=== PATIENT | male | born 1960 | race African-American/Black ===

== ENCOUNTER 2018-06-30 10:04 | Emergency (ER) | payer SELFPAY ==
[2018-06-30] MEDS ORDERED: DIPHENHYDRAMINE 25 MG TAB/CAP ONE (10:59)
[2018-06-30] MEDS ORDERED: METHYLPREDNISOLONE 125 MG INJ ONE (10:59)
[2018-06-30] MEDS ORDERED: FAMOTIDINE 20 MG/2 ML VIAL IV ONE (10:59)
[2018-06-30] MEDS ORDERED: NA CHLORIDE 0.9% 1,000 ML ONE (10:59)
[2018-06-30] MEDS ORDERED: DEXAMETHASONE 4 MG/ML VIAL ONE (11:13)
--- NOTE | 2018-06-30 12:09 | EDPHYS ---
Physician Documentation [facility] Name: Ilan Garcia Jr Age: 57 yrs Sex: Male : 1960 Arrival Date: 06/30/2018 Time: 10:07 Bed 3 Private MD: None, None ED Physician Js Pinzon HPI: 06/30 10:44 This 57 yrs old Black Male presents to ER via Ambulatory with complaints of Facial jmm Swelling. 10:44 Onset: The symptoms/episode began/occurred gradually, 1 week(s) ago. Associated signs jmm and symptoms: Pertinent negatives: chest pain, fever, headache, vomiting. Modifying factors: The patient symptoms are alleviated by nothing, the patient symptoms are aggravated by nothing. This is a 57 year old male with no chronic medical conditions that presents to the ED with facial swelling beginning 1 week ago after eating seafood gumbo. Patient denies shortness of breath, vomiting, chest pain. . Historical: - Allergies: 10:24 seafood; aj - Home Meds: 10:24 None [Active]; aj - PMHx: 10:24 None; aj - PSHx: 10:24 Knee surgery; aj - Immunization history:: Adult Immunizations unknown. - Social history:: Smoking status: Patient uses tobacco products, smokes one-half pack cigarettes per day. - Ebola Screening: : Patient negative for fever greater than or equal to 101.5 degrees Fahrenheit, and additional compatible Ebola Virus Disease symptoms Patient denies exposure to infectious person Patient denies travel to an Ebola-affected area in the 21 days before illness onset No symptoms or risks identified at this time. ROS: 10:44 Constitutional: Negative for fever, chills, and weight loss, Eyes: Negative for injury, jmm pain, redness, and discharge, Cardiovascular: Negative for chest pain, palpitations, and edema, Respiratory: Negative for shortness of breath, cough, wheezing, and pleuritic chest pain. 10:44 ENT: Positive for 10:44 All other systems are negative. Exam: 10:44 Constitutional: This is a well developed, well nourished patient who is awake, alert, jmm and in no acute distress. 10:44 Head/face: Noted is swelling, that is moderate. 10:44 ENT: Posterior pharynx: Airway: normal, no pharyngeal edema appreciated. 10:44 Neck: ROM/movement: is normal, is supple. 10:44 Cardiovascular: Rate: normal, Rhythm: regular. 10:44 Respiratory: the patient does not display signs of respiratory distress, Respirations: normal, Breath sounds: are clear throughout. 10:44 Musculoskeletal/extremity: ROM: intact in all extremities. 10:44 Skin: Appearance: Color: normal in color. 10:44 Neuro: Orientation: is normal, Mentation: is normal, Memory: is normal. 10:44 Psych: Behavior/mood is pleasant, cooperative. Vital Signs: 10:24 BP 153 / 97; Pulse 81; Resp 17; Temp 98.4; Pulse Ox 97% on R/A; Weight 92.99 kg; Height aj 5 ft. 11 in. (180.34 cm); 11:20 BP 140 / 93; Pulse 84; Resp 16; Temp 98.5; Pulse Ox 99% on R/A; Pain 6/10; ch 11:55 BP 152 / 76; Pulse 71; Resp 16; Temp 97.5; Pulse Ox 99% on R/A; Pain 3/10; ch 12:15 BP 134 / 78; Pulse 68; Resp 14; Temp 97.3; Pulse Ox 99% on R/A; Pain 0/10; ch 10:24 Body Mass Index 28.59 (92.99 kg, 180.34 cm) aj MDM: 10:[address] [facility] 12:06 Data reviewed: vital signs, nurses notes. Counseling: I had a detailed discussion with corbin the patient and/or guardian regarding: the historical points, exam findings, and any diagnostic results supporting the discharge/admit diagnosis, the need for outpatient follow up, to return to the emergency department if symptoms worsen or persist or if there are any questions or concerns that arise at home. Response to treatment: the patient's symptoms have mildly improved after treatment, decreased facial swelling. Administered Medications: 11:05 Drug: diphenhydrAMINE 50 mg Route: PO; ch 11:57 Follow up: Response: No adverse reaction; Marked relief of symptoms ch 11:05 Drug: Pepcid 20 mg Route: IVP; Site: left antecubital; ch 11:57 Follow up: Response: No adverse reaction; Marked relief of symptoms ch 11:05 Drug: NS 0.9% 1000 ml Route: IV; Rate: 1 bolus; Site: left antecubital; 11:56 Follow up: IV Status: Completed infusion; IV Intake: 1000ml 11:19 Drug: Decadron - Dexamethasone 10 mg Route: IVP; Site: right antecubital; 11:56 Follow up: Response: No adverse reaction; Marked relief of symptoms Disposition: 13:44 Co-signature as Attending Physician, Js Pinzon MD I agree with the assessment and [facility] plan of care. Disposition: 06/30/18 12:07 Discharged to Home. Impression: Allergic Reaction. - Condition is Stable. - Discharge Instructions: Allergies, Adult, Angioedema. - Prescriptions for Benadryl 25 mg Oral Capsule - take 1 capsule by ORAL route every 6 hours As needed; 30 tablet. Prednisone 20 mg Oral Tablet - take 3 tablet by ORAL route once daily for 5 days; 15 tablet. EpiPen 0.3 mg Injection auto- injector - inject 1 pen by INTRAMUSCULAR route as directed Inject into the outer portion of the thigh, through clothing if necessary. Indicated in the emergency treatment of allergic reactions; 2 unit. - Medication Reconciliation Form, Thank You Letter, Antibiotic Education, Prescription Opioid Use, Work release form form. - Follow up: Private Physician; When: 2 - 3 days; Reason: Recheck today's complaints, Continuance of care, Re-evaluation by your physician. Signatures: Layne Hoff RN RN ch Myers, Amanda, RN RN aj Anderson, Corey, MD MD cha Mickail, Joel, PA PA [facility] Corrections: (The following items were deleted from the chart) 12:17 12:07 06/30/2018 12:07 Discharged to Home. Impression: Allergic Reaction. Condition is ch Stable. Forms are Medication Reconciliation Form, Thank You Letter, Antibiotic Education, Prescription Opioid Use. Follow up: Private Physician; When: 2 - 3 days; Reason: Recheck today's complaints, Continuance of care, Re-evaluation by your physician. corbin
--- NOTE | 2018-06-30 12:09 | ER ---
Nurse's Notes [facility] Name: Ilan Garcia Jr Age: 57 yrs Sex: Male : 1960 Arrival Date: 06/30/2018 Time: 10:07 Bed 3 Private MD: None, None Diagnosis: Allergic Reaction Presentation: 06/30 10:23 Presenting complaint: Patient states: Facial swelling for 1 week after eating seafood aj gumbo. Patient reports similar episode years ago after eating seafood. Transition of care: patient was not received from another setting of care. Onset of symptoms was May 23, 2018. Risk Assessment: Do you want to hurt yourself or someone else? Patient reports no desire to harm self or others. Initial Sepsis Screen: Does the patient meet any 2 criteria? No. Patient's initial sepsis screen is negative. Does the patient have a suspected source of infection? No. Patient's initial sepsis screen is negative. Care prior to arrival: None. 10:23 Method Of Arrival: Ambulatory 10:23 Acuity: BRI 3 aj Triage Assessment: 10:24 General: Appears in no apparent distress. uncomfortable, Behavior is calm, cooperative, aj appropriate for age. Pain: Denies pain. Neuro: Level of Consciousness is awake, alert, obeys commands, Oriented to person, place, time, situation, Appropriate for age Reports headache. Respiratory: Airway is patent Respiratory effort is even, unlabored, Respiratory pattern is regular, symmetrical, Denies shortness of breath. Derm: Skin is intact, is healthy with good turgor, Skin is pink, warm \T\ dry. normal. Musculoskeletal: Swelling present in face. Historical: - Allergies: 10:24 seafood; aj - Home Meds: 10:24 None [Active]; aj - PMHx: 10:24 None; aj - PSHx: 10:24 Knee surgery; aj - Immunization history:: Adult Immunizations unknown. - Social history:: Smoking status: Patient uses tobacco products, smokes one-half pack cigarettes per day. - Ebola Screening: : Patient negative for fever greater than or equal to 101.5 degrees Fahrenheit, and additional compatible Ebola Virus Disease symptoms Patient denies exposure to infectious person Patient denies travel to an Ebola-affected area in the 21 days before illness onset No symptoms or risks identified at this time. Screenin:20 Abuse screen: Denies threats or abuse. Denies injuries from another. Nutritional ch screening: No deficits noted. Tuberculosis screening: No symptoms or risk factors identified. Fall Risk None identified. Assessment: 11:20 General: Appears in no apparent distress. uncomfortable, Behavior is calm, cooperative. ch Pain: Complains of pain in face Pain currently is 6 out of 10 on a pain scale. Neuro: No deficits noted. Cardiovascular: Denies chest pain, Heart tones S1 S2 present Capillary refill < 3 seconds in bilateral fingers toes. Respiratory: Airway is patent Respiratory effort is even, unlabored, Breath sounds are clear bilaterally. Derm: Skin is normal, brown, pt has severe angioedema to latosha eyes, eyes are almost swollen shut. pt states it feels like pressure. Musculoskeletal: Circulation, motion, and sensation intact. 11:55 Reassessment: Patient appears in no apparent distress at this time. Patient and/or ch family updated on plan of care and expected duration. Pain level reassessed. Patient is alert, oriented x 3, equal unlabored respirations, skin warm/dry/pink. Patient states feeling better. Patient states symptoms have improved. 12:15 Reassessment: Patient appears in no apparent distress at this time. Patient and/or ch family updated on plan of care and expected duration. Pain level reassessed. Patient is alert, oriented x 3, equal unlabored respirations, skin warm/dry/pink. swelling around eyes is much improved. no s/s of distress. pt states he feels better, denies pain at this time. Patient denies pain at this time. Patient states feeling better. Patient states symptoms have improved. Vital Signs: 10:24 BP 153 / 97; Pulse 81; Resp 17; Temp 98.4; Pulse Ox 97% on R/A; Weight 92.99 kg; Height aj 5 ft. 11 in. (180.34 cm); 11:20 BP 140 / 93; Pulse 84; Resp 16; Temp 98.5; Pulse Ox 99% on R/A; Pain 6/10; ch 11:55 BP 152 / 76; Pulse 71; Resp 16; Temp 97.5; Pulse Ox 99% on R/A; Pain 3/10; ch 12:15 BP 134 / 78; Pulse 68; Resp 14; Temp 97.3; Pulse Ox 99% on R/A; Pain 0/10; ch 10:24 Body Mass Index 28.59 (92.99 kg, 180.34 cm) aj ED Course: 10:07 Patient arrived in ED. mr 10:07 None, None is Private Physician. mr 10:24 Triage completed. aj 10:24 Arm band placed on left wrist. Patient placed in an exam room. aj 10:28 Toi Marquez PA is PHCP. jm 10:28 Js Pinzon MD is Attending Physician. [facility] 10:50 Missed attempt(s): 22 gauge in left forearm. antecubital area. attemped by myself once ch and tiago Bernardo once. . Bleeding controlled, band aid applied, catheter tip intact. 10:51 Layne Hoff, CRISTOFER is Primary Nurse. ch 11:20 Patient has correct armband on for positive identification. Placed in gown. Bed in low ch position. Call light in reach. Side rails up X 1. Adult w/ patient. Pulse ox on. NIBP on. Warm blanket given. 11:20 Inserted saline lock: 22 gauge in right antecubital area, using aseptic technique. ch 12:15 No apparent distress. Resting quietly. ch 12:15 No provider procedures requiring assistance completed. IV discontinued, intact, ch bleeding controlled, No redness/swelling at site. Pressure dressing applied. Administered Medications: 11:05 Drug: diphenhydrAMINE 50 mg Route: PO; ch 11:57 Follow up: Response: No adverse reaction; Marked relief of symptoms ch 11:05 Drug: Pepcid 20 mg Route: IVP; Site: left antecubital; ch 11:57 Follow up: Response: No adverse reaction; Marked relief of symptoms ch 11:05 Drug: NS 0.9% 1000 ml Route: IV; Rate: 1 bolus; Site: left antecubital; ch 11:56 Follow up: IV Status: Completed infusion; IV Intake: 1000ml ch 11:19 Drug: Decadron - Dexamethasone 10 mg Route: IVP; Site: right antecubital; ch 11:56 Follow up: Response: No adverse reaction; Marked relief of symptoms ch Intake: 11:56 IV: 1000ml; Total: 1000ml. ch Outcome: 12:07 Discharge ordered by . [facility] 12:15 Discharged to home ambulatory, with family. 12:15 Condition: stable 12:15 Discharge instructions given to patient, family, Instructed on discharge instructions, follow up and referral plans. medication usage, Demonstrated understanding of instructions, follow-up care, medications, Prescriptions given X 3. 12:17 Patient left the ED. Signatures: Layne Hoff RN RN ch Myers, Amanda, RN RN aj Mickail, Joel, PA PA jmm Rivera, Maria mr
[2018-06-30 13:15] VITALS: O2SAT 99
[2018-06-30 13:18] VITALS: BP 134/78; TEMP 97.3
== END 2018-06-30 12:17 | disposition home or self-care (01) ==
LOC: ER 10:04
DX: R22.0 Localized swelling, mass and lump, head (principal); F17.210 Nicotine dependence, cigarettes, uncomplicated; Z91.013 Allergy to seafood
CPT/HCPCS: 99284; J2930; J7030

== ENCOUNTER 2019-02-13 19:22 | Inpatient (IN) | payer SELFPAY ==
[2019-02-13 20:23] LABS: Absolute Lymphocytes (CBC) 0.8 K/uL (0.7-4.9); Absolute Monocytes 1.1 K/uL (0.1-1.3); Basophils % 0.3 % (0-1.3); Eosinophils % 0.1 % (0-4.4); Hematocrit 51.4 % (39.6-49.0); MPV 8.8 fL (7.6-11.3); Monocytes % 7.9 % (3.3-12.3); RBC Red Blood Cell Count 5.77 M/uL (4.33-5.43)
[2019-02-13 20:35] LABS: Albumin 3.8 g/dL (3.4-5.0); Bilirubin Direct 0.2 mg/dL (0-0.2); Bilirubin Total 0.8 mg/dL (0.2-1.0); Protein, Total 9.5 g/dL (6.4-8.2)
[2019-02-13 20:36] LABS: Urine Blood 2+ (NEG); Urine Glucose NEGATIVE (NEG); Urine Protein 1+ (NEG)
[2019-02-13] MEDS ORDERED: MORPHINE 4 MG/ML SYR ONE (20:39)
[2019-02-13 20:49] LABS: Potassium 6.6 mmol/L (3.5-5.1)
--- NOTE | 2019-02-13 20:56 | EDPHYS ---
Physician Documentation [facility] Name: Ilan Garcia Jr Age: 58 yrs Sex: Male : 1960 Arrival Date: 02/13/2019 Time: 19:27 Bed 4 Private MD: ED Physician Rony Stark HPI: 02/14 06:14 This 58 yrs old Black Male presents to ER via EMS with complaints of Constipation, tw4 Urinary Retention. 06:14 The patient presents with urinary symptoms, retention. Onset: The symptoms/episode tw4 began/occurred 4 day(s) ago. Modifying factors: The symptoms are alleviated by nothing, the symptoms are aggravated by nothing. Associated signs and symptoms: The patient has no apparent associated signs or symptoms. Severity of symptoms: At their worst the symptoms were moderate, in the emergency department the symptoms are unchanged. The patient has not experienced similar symptoms in the past. Historical: - Allergies: 02/13 19:29 SEAFOOD; tl2 - Home Meds: 19:29 None [Active]; tl2 - PMHx: 19:29 Hypertension; tl2 - Immunization history:: Adult Immunizations up to date. - Social history:: Smoking status: Patient uses tobacco products, smokes two packs cigarettes per day. - Ebola Screening: : No symptoms or risks identified at this time. ROS: 02/14 06:14 Constitutional: Negative for fever, chills, and weight loss, Eyes: Negative for injury, tw4 pain, redness, and discharge, Cardiovascular: Negative for chest pain, palpitations, and edema, Respiratory: Negative for shortness of breath, cough, wheezing, and pleuritic chest pain, Abdomen/GI: Negative for abdominal pain, nausea, vomiting, diarrhea, and constipation, Back: Negative for injury and pain. : Positive for urinary symptoms, urinary retention. Exam: 06:14 Chest/axilla: Normal chest wall appearance and motion. Nontender with no deformity. tw4 No lesions are appreciated. Cardiovascular: Regular rate and rhythm with a normal S1 and S2. No gallops, murmurs, or rubs. Normal PMI, no JVD. No pulse deficits. Respiratory: Lungs have equal breath sounds bilaterally, clear to auscultation and percussion. No rales, rhonchi or wheezes noted. No increased work of breathing, no retractions or nasal flaring. Back: No spinal tenderness. No costovertebral tenderness. Full range of motion. MS/ Extremity: Pulses equal, no cyanosis. Neurovascular intact. Full, normal range of motion. Neuro: Awake and alert, GCS 15, oriented to person, place, time, and situation. Cranial nerves II-XII grossly intact. Motor strength 5/5 in all extremities. Sensory grossly intact. Cerebellar exam normal. Normal gait. 06:14 Constitutional: The patient appears in obvious distress, moderately distressed, obviously ill, in obvious pain. 06:14 Abdomen/GI: Inspection: abdomen appears normal, Bowel sounds: diminished, Palpation: moderate abdominal tenderness, in the suprapubic area. Vital Signs: 02/13 19:29 BP 160 / 117; Pulse 119; Resp 22; Temp 98.1(O); Pulse Ox 91% on R/A; Weight 95.25 kg; tl2 Height 5 ft. 11 in. (180.34 cm); Pain 9/10; 20:35 BP 142 / 111; Pulse 115; Resp 22; Pulse Ox 94% on 2 lpm NC; bb 22:52 BP 147 / 113; Pulse 124; Resp 22; Temp 98.4; Pulse Ox 96% on 2 lpm NC; ak1 23:25 BP 140 / 104; Pulse 113; Resp 18; Temp 98.6(O); Pulse Ox 99% on 2 lpm NC; Pain 0/10; ak1 02/14 00:29 BP 137 / 82; Pulse 111; Resp 18; Pulse Ox 99% on 2 lpm NC; ak1 02/13 19:29 Body Mass Index 29.29 (95.25 kg, 180.34 cm) tl2 MDM: 02/13 20:02 Patient medically screened. tw4 02/14 06:14 Differential diagnosis: nonspecific abdominal pain, appendicitis, UTI. Data reviewed: tw4 vital signs, nurses notes. Data interpreted: teletypesetter monitor: Pulse oximetry: Interpretation: normal. Counseling: I had a detailed discussion with the patient and/or guardian regarding: the historical points, exam findings, and any diagnostic results supporting the discharge/admit diagnosis. Special discussion: I discussed with the patient/guardian in detail that at this point there is no indication for admission to the hospital. It is understood, however, that if the symptoms persist or worsen the patient needs to return immediately for re-evaluation. 02/13 19:36 Order name: Basic Metabolic Panel; Complete Time: 20:54 tw4 02/13 20:54 Interpretation: Normal except: BUN 93; CRE 8.37; GLUC 138; CO2 19; K 6.6; NA 132. tw 02/13 19:36 Order name: CBC with Diff tw 02/13 20:54 Interpretation: Normal except: WBC 14.0; RBC 5.77; HCT 51.4; KEISHA% 85.7; LYM% 6.0; NEUT tw4 A 12.0. 02/13 19:36 Order name: Creatinine for Radiology; Complete Time: 20:54 tw 02/13 20:54 Interpretation: Normal except: CRE 8.51; GFR 8. tw 02/13 19:36 Order name: Hepatic Function; Complete Time: 20:54 [facility] 02/13 20:54 Interpretation: Normal except: AST 11; TP 9.5; GLOB 5.7; A/G 0.7. [facility] 02/13 19:36 Order name: Lipase; Complete Time: 20:54 [facility] 02/13 20:54 Interpretation: Normal except: LIP 68. tw 02/13 20:24 Order name: Urine Dipstick--Ancillary (enter results) ks 02/13 20:18 Order name: CT Abd/Pelvis - Without Cont [facility] 02/13 22:01 Order name: Lactate [facility] 02/13 22:01 Order name: Procalcitonin [facility] 02/13 22:41 Order name: Potassium [facility] 02/13 23:17 Order name: CBC Smear Scan [facility] 02/13 19:36 Order name: IV Saline Lock; Complete Time: 19:45 tw 02/13 19:36 Order name: Labs collected and sent; Complete Time: 19:57 tw 02/13 19:59 Order name: [place]; Complete Time: 20:23 02/13 20:52 Order name: EKG; Complete Time: 20:52 tw4 Administered Medications: 02/13 20:33 Drug: morphine 4 mg Route: IVP; Site: left antecubital; bb 22:53 Follow up: Response: No adverse reaction ak1 21:16 Drug: D50W 50 ml Route: IVP; Site: left antecubital; ak1 22:53 Follow up: Response: No adverse reaction ak1 21:16 Drug: Calcium Chloride 1 grams Route: IVP; Site: left antecubital; ak1 22:53 Follow up: Response: No adverse reaction ak1 21:16 Drug: Sodium Bicarbonate 1 amp Route: IVP; Site: left antecubital; ak1 22:54 Follow up: Response: No adverse reaction ak1 21:17 Drug: Insulin Regular Human 10 units {Co-Signature: aa1 (Tahmina Bryant RN).} Route: ak1 IVP; Site: left antecubital; 22:53 Follow up: Response: No adverse reaction ak1 Disposition: 02/13/19 20:55 Hospitalization ordered by Fabiola Locke for Inpatient Admission. Preliminary diagnosis are Acute kidney failure, Hyperkalemia. - Bed requested for Telemetry/MedSurg (Inpatient). - Status is Inpatient Admission. ak1 - Condition is Serious. - Problem is new. - Symptoms are unchanged. UTI on Admission? No Signatures: Dispatcher [employer] EDMS Leslie Nevarez RN RN Brandee Esquivel RN RN bb Leny Santos RN RN ak1 Karishma Ch RN CRISTOFER tl2 Rony Stark MD MD tw4 Tahmina Bryant RN aa1 Corrections: (The following items were deleted from the chart) 22:09 20:55 Hospitalization Ordered by Fabiola Locke MD for Inpatient Admission. Preliminary bb diagnosis is Acute kidney failure; Hyperkalemia. Bed requested for Intensive Care Unit. Status is Inpatient Admission. Condition is Serious. Problem is new. Symptoms are unchanged. UTI on Admission? No. tw4 23:30 22:09 02/13/2019 20:55 Hospitalization Ordered by Fabiola Locke MD for Inpatient mw Admission. Preliminary diagnosis is Acute kidney failure; Hyperkalemia. Bed requested for Telemetry/MedSurg (Inpatient). Status is Inpatient Admission. Condition is Serious. Problem is new. Symptoms are unchanged. UTI on Admission? No. bb 02/14 00:28 02/13 23:30 02/13/2019 20:55 Hospitalization Ordered by Fabiola Locke MD for Inpatient ak1 Admission. Preliminary diagnosis is Acute kidney failure; Hyperkalemia. Bed requested for Telemetry/MedSurg (Inpatient). Status is Inpatient Admission. Condition is Serious. Problem is new. Symptoms are unchanged. UTI on Admission? No. mw
--- NOTE | 2019-02-13 20:56 | ER ---
Nurse's Notes [facility] Name: Ilan Garcia Jr Age: 58 yrs Sex: Male : 1960 Arrival Date: 02/13/2019 Time: 19:27 Bed 4 Private MD: Diagnosis: Acute kidney failure;Hyperkalemia Presentation: 02/13 19:27 Presenting complaint: EMS states: No bowel movement or urination since . tl2 Abdominal distention noted. Pt reports severe abdominal pain. Transition of care: patient was not received from another setting of care. Onset of symptoms was February 08, 2019. Risk Assessment: Do you want to hurt yourself or someone else? Patient reports no desire to harm self or others. Initial Sepsis Screen: Does the patient meet any 2 criteria? No. Patient's initial sepsis screen is negative. Does the patient have a suspected source of infection? No. Patient's initial sepsis screen is negative. Care prior to arrival: Medication(s) given: fentanyl 100 mcg IV initiated. 20 GA, in the left antecubital area. 19:27 Method Of Arrival: EMS: [facility] tl2 19:27 Acuity: BRI 3 tl2 Triage Assessment: 19:29 General: Appears in no apparent distress. uncomfortable, Behavior is calm, cooperative, tl2 appropriate for age. Pain: Complains of pain in abdomen. GI: Abdomen is round distended, Reports constipation. Historical: - Allergies: 19:29 SEAFOOD; tl2 - Home Meds: 19:29 None [Active]; tl2 - PMHx: 19:29 Hypertension; tl2 - Immunization history:: Adult Immunizations up to date. - Social history:: Smoking status: Patient uses tobacco products, smokes two packs cigarettes per day. - Ebola Screening: : No symptoms or risks identified at this time. Screenin:43 Abuse screen: Denies threats or abuse. Nutritional screening: No deficits noted. bb Tuberculosis screening: No symptoms or risk factors identified. Fall Risk None identified. Assessment: 19:43 General: Appears in no apparent distress. uncomfortable, Behavior is calm, cooperative, bb Reports pain in abdomen with distention urinary retention and constipation since . Pain: Complains of pain in abdomen Pain currently is 10 out of 10 on a pain scale. Neuro: Level of Consciousness is awake, alert, obeys commands, Oriented to person, place, time, situation. Cardiovascular: Heart tones S1 S2 present Capillary refill < 3 seconds Patient's skin is warm and dry. Respiratory: Airway is patent Respiratory effort is even, unlabored. GI: Abdomen is distended, Bowel sounds hypoactive in right upper quadrant, left upper quadrant, right lower quadrant and left lower quadrant Abdomen is tender to palpation Abd is rigid X 4 quads. : Reports inability to void. Derm: Skin is dry, Skin is normal, Skin temperature is warm. Musculoskeletal: Circulation, motion, and sensation intact. 20:34 Reassessment: Patient is alert, oriented x 3, equal unlabored respirations, skin bb warm/dry/pink. pt states he is feeling a little better since the talavera insertion, awaiting lab results. 23:39 Reassessment: Patient and/or family updated on plan of care and expected duration. Pain ak1 level reassessed. Patient is alert, oriented x 3, equal unlabored respirations, skin warm/dry/pink. pt resting with eyes closed and resp even and unlabored. Patient states feeling better. Vital Signs: 19:29 BP 160 / 117; Pulse 119; Resp 22; Temp 98.1(O); Pulse Ox 91% on R/A; Weight 95.25 kg; tl2 Height 5 ft. 11 in. (180.34 cm); Pain 9/10; 20:35 BP 142 / 111; Pulse 115; Resp 22; Pulse Ox 94% on 2 lpm NC; bb 22:52 BP 147 / 113; Pulse 124; Resp 22; Temp 98.4; Pulse Ox 96% on 2 lpm NC; ak1 23:25 BP 140 / 104; Pulse 113; Resp 18; Temp 98.6(O); Pulse Ox 99% on 2 lpm NC; Pain 0/10; ak1 02/14 00:29 BP 137 / 82; Pulse 111; Resp 18; Pulse Ox 99% on 2 lpm NC; ak1 02/13 19:29 Body Mass Index 29.29 (95.25 kg, 180.34 cm) tl2 ED Course: 02/13 19:27 Patient arrived in ED. tl2 19:29 Triage completed. tl2 19:29 Arm band placed on right wrist. tl2 19:43 Patient has correct armband on for positive identification. Bed in low position. Call bb light in reach. Side rails up X2. Adult w/ patient. alarm security or surveillance monitor on. Pulse ox on. NIBP on. 19:43 Maintain EMS IV. Dressing intact. Site clean \T\ dry. Gauge \T\ site: 20 g L AC. bb 19:59 Initial lab(s) drawn, by me, sent to lab. bb 20:00 Talavera cath inserted, using sterile technique, 16 Fr., by az, balloon inflated, to bb gravity drainage, urine specimen collected. Patient tolerated well. 20:02 Rony Stark MD is Attending Physician. tw4 20:21 Leny Santos, CRISTOFER is Primary Nurse. ak1 20:34 Oxygen administration via nasal cannula pt's sats 92% on room air applied O2 via NC at bb 2 Lpm sats now 94%. 20:46 CT Abd/Pelvis - Without Cont In Process Unspecified. EDMS 20:49 Notified ED physician of a critical lab result(s). potassium of 6.6, Creatinine of bb 8.37. Dr Stark notified. 20:55 Fabiola Locke MD is Hospitalizing Provider. tw4 23:25 Notified ED physician of a critical lab result(s). 2.6 lactate acid. ak1 23:39 No provider procedures requiring assistance completed. Patient admitted, IV remains in ak1 place. Administered Medications: 20:33 Drug: morphine 4 mg Route: IVP; Site: left antecubital; bb 22:53 Follow up: Response: No adverse reaction ak1 21:16 Drug: D50W 50 ml Route: IVP; Site: left antecubital; ak1 22:53 Follow up: Response: No adverse reaction ak1 21:16 Drug: Calcium Chloride 1 grams Route: IVP; Site: left antecubital; ak1 22:53 Follow up: Response: No adverse reaction ak1 21:16 Drug: Sodium Bicarbonate 1 amp Route: IVP; Site: left antecubital; ak1 22:54 Follow up: Response: No adverse reaction ak1 21:17 Drug: Insulin Regular Human 10 units {Co-Signature: aa1 (Tahmina Bryant RN).} Route: ak1 IVP; Site: left antecubital; 22:53 Follow up: Response: No adverse reaction ak1 Output: 22:39 Urine: 1625ml (Talavera); Total: 1625ml. ak1 23:25 Urine: 300ml (Talavera); Total: 1925ml. ak1 Outcome: 20:55 Decision to Hospitalize by Provider. tw4 23:29 Condition: stable ak1 23:29 Instructed on the need for admit. 23:48 Admitted to Med/surg accompanied by tech, via stretcher, room 204, with oxygen, with ak1 chart, Report called to Darline C[place] 02/14 00:28 Patient left the ED. ak1 Signatures: Dispatcher [employer] EDMS Brandee Esquivel RN RN bb Leny Santos RN RN ak1 Karishma Ch RN RN tl2 Rony Stark MD MD tw4 Tahmina Bryant RN aa1
--- NOTE | 2019-02-13 21:02 | RAD REPORT ---
EXAM DESCRIPTION: CT - Abdomen Pelvis Wo Contrast - 02/13/2019 8:46 pm CLINICAL HISTORY: Abdominal pain COMPARISON: None. TECHNIQUE: Axial [address] imaging of the abdomen and pelvis was performed without IV contrast. No IV contrast was given because of allergy, abnormal renal function, patient refusal or physician re quest. No oral contrast administered. All CT scans are performed using dose optimization technique as appropriate and may include automated exposure control or mA/KV adjustment according to patient size. FINDINGS: Bilateral posterior gutter opacification is present with air bronchograms. Bilateral pneum onia is suspected. No pericardial thickening or effusion. Liver has a slightly nodular capsular contour. No focal liver lesions seen on noncontrast imaging. No splenomegaly or focal splenic finding. Pancreas is unremarkable. Gallbladder and biliary tree are al so without suspicious finding. No hydronephrosis or suspicious renal mass. No significant adrenal finding. Isodense renal masses an d pyelonephritis cannot be excluded in the absence of IV contrast. Urinary bladder is contracted arou nd a Culver catheter. No dilated bowel loops or bowel wall thickening. No free air or pneumatosis. Moderate volume of ascit es present primarily subdiaphragmatic in location. No omental thickening. No hernia, mass or bulky ly mphadenopathy. No suspicious bony findings. IMPRESSION: Moderately large volume of ascites primarily collecting in the subdiaphragmatic region. Bilateral posterior gutter opacification suspicious for bilateral pneumonia rather than simple atelec tasis. No focal mass lesion. No acute or GI process seen on noncontrast imaging. Full assessment is limited is the absence of IV contrast.
[2019-02-13] MEDS ORDERED: INSULIN -REGULAR HUMAN 50 UNIT/0.5 ML ML ONE (21:14)
[2019-02-13] MEDS ORDERED: Caclcium Chloride 10% INJ SYR IV ONE (21:14)
[2019-02-13] MEDS ORDERED: D50W 25 GM/50 ML SYRINGE IV ONE ×2 (21:14→21:17)
[2019-02-13 23:17] LABS: Blood Morphology Comment NOT SEEN (NOT SEEN); Platelet Estimate ADEQ; Urine White Blood Cell Casts OK
[2019-02-13] MEDS ORDERED: ONDANSETRON 4 MG/2 ML VIAL IV PRN (23:58)
[2019-02-14 00:45] VITALS: BMI 23.4
[2019-02-14] MEDS: NA CHLORIDE 0.9% 1,000 ML IV SCH ×4 (00:59→17:29)
--- NOTE | 2019-02-14 04:32 | P.HP ---
Certification for Inpatient Patient admitted to: Inpatient With expected LOS: >2 Midnights Practitioner: I am a practitioner with admitting privileges, knowledge of patient current condition, hospital course, and medical plan of care. Services: Services provided to patient in accordance with Admission requirements found in Title 42 Section 412.3 of the Code of Federal Regulations Patient History Date of Service: 02/13/19 Reason for admission: acute renal injury, urinary retention, ileus History of Present Illness: Mr Garcia is a 58 years old male with history of HTN, tobacco and alcohol abuse, who came to ED complaining of severe abdominal pain and distention. The patient states that he has not urinated or having bowel movements since 4 days ago. He is not passing gas either. The patient denied fever or chills. He has had nausea but not vomiting. He has never had this problem before. He had placed a Culver catheter, and subsequently was obtained about 1L of urine. Lab work remarkable for leukocytosis 14.4, elevated lactate but normal procalcitonin, creatinine 8.37, EGFR 8, potassium 6.6. He has had some productive cough with whitish secretions. No SOB or chest pain. CT abd/pelvis remarkable for moderate amount of ascites,. No hydronephrosis noted. Report said no bowel distention, however, images seems to have air-fluid level. At physical exam, the patient has no bowel tones, and is tympanic to percussion. Allergies shrimp Allergy (Verified 02/14/19 01:00) Hives/Rash Home Medications: NK [No Home Meds] 02/14/19 - Past Medical/Surgical History Has patient received pneumonia vaccine in the past: No Diabetic: No -: Hypertension -: alcohol abuse -: tobacco abuse -: right knee sx - Family History Father -: Hypertension, Diabetes Notes: - Social History Smoking Status: Current some day smoker Counseled patient to stop smoking for: less than 10 minutes Smoking therapy provided: No Alcohol use: Yes CD- Drugs: No Caffeine use: Yes Place of Residence: Home Review of Systems 10-point ROS is otherwise unremarkable Physical Examination - Vital Signs Temperature: 96.8 F Blood Pressure: 160/100 Pulse: 109 Respirations: 19 Pulse Ox (%): 93 - Physical Exam General: Alert, In no apparent distress HEENT: Atraumatic, PERRLA, Mucous membr. moist/pink, EOMI, Sclerae nonicteric Neck: Supple, 2+ carotid pulse no bruit, No LAD, Without JVD or thyroid abnormality Respiratory: Clear to auscultation bilaterally, Normal air movement Cardiovascular: Regular rate/rhythm, Normal S1 S2 Gastrointestinal: Hypoactive, Distended, Tenderness Musculoskeletal: No tenderness Integumentary: No rashes Neurological: Normal speech, Normal strength at 5/5 x4 extr, Normal tone, Normal affect Lymphatics: No axilla or inguinal lymphadenopathy - Studies Laboratory Data (last 24 hrs) 02/13/19 22:35: Potassium 4.9 02/13/19 19:55: Creatinine 8.51 H* 02/13/19 19:55: WBC 14.0 H, Hgb 16.8, Hct 51.4 H, Plt Count 345 02/13/19 19:55: Sodium 132 L, Potassium 6.6 H*, BUN 93 H, Creatinine 8.37 H*, Glucose 138 H, Total Bilirubin 0.8, AST 11 L, ALT 26, Alkaline Phosphatase 81, Lipase 68 L Assessment and Plan - Problems (Diagnosis) (1) Urinary retention Current Visit: Yes Status: Acute Plan: about 1L of urine obtained after Culver catheter placed. Differential diagnosis include prostatitis, BPH, malignancy. PSA is 6.6, slightly elevated. Will start empiric antibiotics, consult Dr Medley for evaluation and recommendations. (2) Hyperkalemia Current Visit: Yes Status: Acute Plan: He has received treatment in ED, subsequent postassium level was 4.7. Continue close monitoring. (3) Ileus Current Visit: Yes Status: Acute Plan: The case was discussed by phone with Dr Handley, who states that he might have ileus due to bladder distention. He expect, resolution after urinary obstruction is resolved. Will order abdominal series, eventually will place a formal surgery consult. (4) Acute renal injury Current Visit: Yes Status: Acute Plan: Likely secondary to urinary retention. Consult Nephrology. - Advance Directives Does patient have a Living Will: No Does patient have a Durable POA for Healthcare: No - Code Status/Comfort Care Code Status Assessed: Yes Code Status: Full Code
[2019-02-14] MEDS ORDERED: PNEUMOCOCCAL VACCINE 0.5 ML IMVAC ONE (06:00)
[2019-02-14 06:21] LABS: Absolute Lymphocytes (CBC) 1.2 K/uL (0.7-4.9); Absolute Monocytes 1.3 K/uL (0.1-1.3); Absolute Neutrophil 8.4 K/uL (1.8-8.0); Basophils % 0.4 % (0-1.3); Eosinophils % 0.1 % (0-4.4); Hematocrit 45.9 % (39.6-49.0); Lymphocytes % 11.2 % (15.3-44.8); MPV 9.1 fL (7.6-11.3); RBC Red Blood Cell Count 5.21 M/uL (4.33-5.43)
[2019-02-14 06:29] LABS: Potassium 4.3 mmol/L (3.5-5.1)
[2019-02-14] MEDS ORDERED: HYDRALAZINE HCL 20 MG/ML VIAL IV PRN (07:02)
[2019-02-14] MEDS ORDERED: LORazepam 2 MG/ML VIAL IV PRN (07:08)
--- NOTE | 2019-02-14 07:25 | RAD REPORT ---
EXAM DESCRIPTION: RAD - Abdomen Acute Series - 02/14/2019 6:55 am CLINICAL HISTORY: Ileus, abdominal pain COMPARISON: Chest film January 2015, CT imaging February 13, 2019 FINDINGS: Lung volumes are low accentuating lung markings. Lung base atelectasis is present and pote ntial pneumonia in each posterior gutter. Costophrenic angle blunting is present. Heart size and pulm onary vasculature are normal. No pneumothorax. Distended but nondilated air-filled large and small bowel loops are present. No free air or pneumatos is. Prominent ileus is favored over mechanical obstruction. No suspicious calcifications. IMPRESSION: Distended, air-filled large and small bowel loops with ileus favored over obstruction. No free air, pneumatosis or other emergent finding. Lung base atelectasis with possible posterior gutter pneumonia.
[2019-02-14] MEDS: CEFTRIAXONE/SWI 1gm 1 GM/10 ML SYR IV SCH (08:06)
[2019-02-14] MEDS: THIAMINE 200 MG/2 ML INJ IVP SCH (08:06)
[2019-02-14] MEDS: FAMOTIDINE 20 MG/2 ML VIAL IV SCH ×2 (08:06→20:41)
[2019-02-14] MEDS: FOLIC ACID 1 MG in NA CHLORIDE 0.9% 50 ML IV SCH (08:19)
[2019-02-14] MEDS ORDERED: AZITHROMYCIN IV 500 MG in NA CHLORIDE 0.9% 250 ML IVPB SCH (09:00)
[2019-02-14] MEDS: MORPHINE 2 MG/ML SYR IV PRN ×2 (09:39→14:30)
--- NOTE | 2019-02-14 11:55 | RAD REPORT ---
EXAM DESCRIPTION: US - Renal Ultrasound-Complete - 02/14/2019 10:58 am CLINICAL HISTORY: . Acute renal failure COMPARISON: None. FINDINGS: The right kidney measures 9 cm with a normal echotexture. The left kidney measures 10 cm with a normal echotexture. Hydronephrosis is not seen. Bladder is decompressed and poorly evaluated Ascites IMPRESSION: Unremarkable renal ultrasound.
[2019-02-14] MEDS: TAMSULOSIN 0.4 MG SR CAP PO SCH (12:24)
--- NOTE | 2019-02-14 13:30 | P.PN ---
Subjective Date of Service: 02/14/19 Primary Care Provider: None Chief Complaint: acute renal injury, urinary retention, ileus Subjective: Other (Patient appears improved.) Physical Examination - Vital Signs Temperature: 97.1 F Blood Pressure: 129/83 Pulse: 100 Respirations: 19 Pulse Ox (%): 94 - Physical Exam General: Alert, In no apparent distress, Oriented x3, Cooperative HEENT: Atraumatic Neck: Supple Respiratory: Clear to auscultation bilaterally, Normal air movement Cardiovascular: Normal pulses, Regular rate/rhythm Gastrointestinal: Normal bowel sounds, Soft and benign, Non-distended, No tenderness, No masses, No rebound, No guarding Neurological: Normal speech, Normal strength at 5/5 x4 extr, Normal tone, Normal affect Urinary: Culver catheter - Studies Laboratory Data (last 24 hrs) 02/13/19 22:35: Potassium 4.9 02/13/19 19:55: Creatinine 8.51 H* 02/13/19 19:55: WBC 14.0 H, Hgb 16.8, Hct 51.4 H, Plt Count 345 02/13/19 19:55: Sodium 132 L, Potassium 6.6 H*, BUN 93 H, Creatinine 8.37 H*, Glucose 138 H, Total Bilirubin 0.8, AST 11 L, ALT 26, Alkaline Phosphatase 81, Lipase 68 L Medications List Reviewed: Yes Assessment & Plan Discharge Plan: Home Plan to discharge in: Greater than 2 days Physician Review Additional Text: Impression: Urinary retention likely related to BPH complicated with acute renal failure Ileus secondary to above Bilateral atelectasis versus pneumonia Hyperkalemia secondary to acute renal failure Hypertension Plan: Urinary retention likely related to BPH complicated with acute renal failure: Patient now with Culver catheter. Flomax added. Urology consulted. Await further recommendation. Nephrology also consulted. Renal ultrasound unremarkable. Continue IV fluids. Will continue to monitor closely. Ileus secondary to above: Patient reported bowel movement this morning. Will start clear liquid diet and advance as tolerated. Bilateral atelectasis versus pneumonia: Will start Rocephin. Will provide incentive spirometer. Will reassess chest x-ray tomorrow. Hyperkalemia secondary to acute renal failure: This improved with treatment. Will continue monitor closely. Hypertension: Will provide medication and monitor closely. Time Spent Managing Pts Care (In Minutes): 55
[2019-02-14 13:36] LABS: Urine Appearance CLEAR; Urine Bilirubin NEGATIVE (NEG); Urine Blood 2+ (NEG); Urine Color YELLOW; Urine Glucose NEGATIVE (NEG); Urine Protein NEGATIVE (NEG); Urine Specific Gravity 1.025 (1.005-1.030); Urine Urobilinogen 0.2 mg/dL (0.2-1.0)
[2019-02-14 13:53] LABS: Urine Protein/Creatinine Ratio 0.2 ratio (<0.15)
[2019-02-14 13:58] LABS: Urine Bacteria 20-50 /HPF (NONE SEEN); Urine Culture Reflex Order NOT NEEDED; Urine RBC 20-50 /HPF (NONE SEEN)
[2019-02-14] MEDS: ENOXAPARIN 30 MG/0.3 ML SQ SCH (16:38)
--- NOTE | 2019-02-14 16:51 | EKG ---
Test Date: 2019-02-13 Test Time: 21:55:54 Consumer Studies Professor: ISSAC MEASUREMENT RESULTS: Intervals: Rate: 129 ME: 136 QRSD: 80 QT: 278 QTc: 407 [place]: P: 46 ME: 136 QRS: 80 T: 43 INTERPRETIVE STATEMENTS: Sinus tachycardia Nonspecific T wave abnormality Abnormal ECG Compared to ECG 01/31/2015 07:00:20 T-wave abnormality now present Sinus rhythm no longer present Electronically Signed On 02-14-19 16:49:44 CDT by Aakash Alston
--- NOTE | 2019-02-14 18:08 | CON ---
Date of Consultation: 02/14/2019 Consulting Physician: Alin Dc DO Reason For Consultation: Elevated BUN and creatinine, fluid management, hypertension. History Of Present Illness: This is a pleasant 58-year-old gentleman with significant past medical h istory of hypertension, no other past medical history, no arthritis, no coronary artery disease. The patient came to the hospital complaining of abdominal pain, found to have ileus with severe bladder distention. Culver was inserted, had almost 2 L. The patient's pain has been subsided. On presentat ion his creatinine was 8.3. Creatinine trend down to the 2s. Had hyperkalemia with potassium 6.[address] hydration and Culver being normalized. The patient denied taking any nonsteroidal. No IV contras t. No recent blood test. Past Medical History: 1.Hypertension. 2.Allergy to shrimp. Home Medication: None. Social History: Active alcohol, active smoking. Denied drugs abuse. Surgical History: Negative. Family History: Positive for hypertension. Review of Systems: Head and Neck: No red eye. No ear pain. GI: Has abdominal pain. : Has urine retention. Medieval English Literature Professor: Not applicable. Respiratory: No shortness of breath. Cardiovascular: No chest pain. Endocrine: No polydipsia. Skin: No rash. Neuro: No neuropathy. Musculoskeletal: Has leg pain. Physical Examination: Vital Signs: When I saw the patient blood pressure 129/83, pulse of 100, afebrile. Chest: Clear to auscultation. Heart: S1, S2. Systolic murmur. Abdomen: Soft. Nontender. Extremity: Trace edema. Laboratory Data: WBC 11, H and H 15.3/45.9, platelet 316. Back in January 2015, H and H 13.9/43.4. S odium 139, potassium 4.3, bicarb 23, BUN 55, creatinine 2.9, calcium 9.3, magnesium of 3. On admissi on, sodium 132, potassium 6.6, BUN 93, creatinine 8.3. At 2014, creatinine 0.9, GFR above 60. CT ab domen, no hydro. Renal ultrasound showing normal sized kidney 06/26. No hydro again. Assessment And Plan: 1.Acute kidney injury secondary to obstructive uropathy, on the recovery phase. I am going to keep Culver today. We will start the patient on Flomax and we will follow up. 2.Hypertension, controlled, optimal. Continue current medication. 3.Urine retention. Start the patient on Flomax. The patient is going to need urology evaluation. 4.Hyperkalemia secondary to renal failure, recovered, resolved. ADOLFO Voice ID: [id number] Report ID: [id number]
--- NOTE | 2019-02-14 18:47 | CON ---
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 The patient states he has not urinated either since 4 days ago nor a b owel movement. They placed a Culver catheter, he had 2 L of urine. It was noted that his creatinine w as 8.4 and GFR was approximately 8 with a potassium of 6.6. PSA was also not surprisingly elevated t o 6.6. Also, this will need to be followed eventually as things return to normal. He currently has a Culver catheter. He is making good urine output, 1200 out, 875 in, was good to be negative at this point. He has never had any abdominal surgery. No previous surgery. No kidney issues, bladder, prostate or testicle or scrotal issues in the past. He says normally voids well at home. No problem s voiding. He has never had his prostate examined. Allergies: SHRIMP CAUSES HIVE AND RASH. Home Medications: None. Past Medical History: Hypertension, alcohol abuse, tobacco abuse, right knee surgery. Family History: Father had hypertension and diabetes. Social History: Current smoker. Was counseled to stop smoking. Alcohol abuse, yes. Drugs, none. Caffeine use, yes. Resides at home. Review of Systems: Ten-point review of system otherwise unremarkable. Physical Examination: Vital Signs: 97.1, heart rate 100, respirations 19, BP 129/83, sats 94%. HEENT: Atraumatic and normocephalic. General: He is alert, oriented, in no acute distress. Respiratory: Clear. Cardiovascular: S1, S2. Abdomen: Soft, but distended. Skin: No rashes. Neurologic: Normal speech. Lymphatic: Negative. Laboratory Studies: Sodium 139, potassium 4.3, chloride 107, carbon dioxide 23. BUN 55; creatinine 2.92; GFR 27 now, which is up from 8 on admission. His creatinine also is down from 8.5 to 2.9 with a Culver catheter in place now. PSA is 6.06. Urinalysis; yellow, clear, specific gravity 1.025, pH 6 .0, blood 2+, nitrite negative, esterase trace. RBC is pending. WBC is still pending. Assessment And Plan: 1.Ileus. Please continue conservative management. Limit p.o. intake at this time. Use clears unti l swelling goes down. 2.Urinary retention, leave Culver catheter in. I agree with starting Flomax. 3.Elevated PSA. We will need to follow this in the next couple of weeks or months to see how he bird s. Most likely was cause from the urinary retention, bladder distention, acute renal injury, most li shyann secondary to retention. Nephrology is on the case. Continue management. ISRAEL/MODL Voice ID: [id number] Report ID: [id number]
[2019-02-14 23:50] VITALS: O2SAT 93
[2019-02-15] MEDS: NA CHLORIDE 0.9% 1,000 ML IV SCH (00:48)
[2019-02-15 05:28] LABS: Absolute Lymphocytes (CBC) 1.3 K/uL (0.7-4.9); Absolute Monocytes 1.1 K/uL (0.1-1.3); Absolute Neutrophil 5.1 K/uL (1.8-8.0); Basophils % 0.4 % (0-1.3); Eosinophils % 1.6 % (0-4.4); Hematocrit 37.9 % (39.6-49.0); Lymphocytes % 17.3 % (15.3-44.8); MPV 8.3 fL (7.6-11.3); Monocytes % 14.1 % (3.3-12.3); RBC Red Blood Cell Count 4.26 M/uL (4.33-5.43)
[2019-02-15 05:43] LABS: Albumin 2.4 g/dL (3.4-5.0); BUN Blood Urea Nitrogen 17 mg/dL (7-18); Bicarbonate 26 mmol/L (21-32); Glucose Level 98 mg/dL (74-106); Magnesium 2.3 mg/dL (1.8-2.4); Potassium 4.2 mmol/L (3.5-5.1); Sodium Level 143 mmol/L (136-145)
[2019-02-15] MEDS: CEFTRIAXONE/SWI 1gm 1 GM/10 ML SYR IV SCH (08:20)
[2019-02-15] MEDS: FOLIC ACID 1 MG in NA CHLORIDE 0.9% 50 ML IV SCH (08:20)
[2019-02-15] MEDS: TAMSULOSIN 0.4 MG SR CAP PO SCH (08:21)
[2019-02-15] MEDS: THIAMINE 200 MG/2 ML INJ IVP SCH (08:21)
[2019-02-15] MEDS: FAMOTIDINE 20 MG/2 ML VIAL IV SCH ×2 (08:21→20:16)
[2019-02-15] MEDS ORDERED: NA CHLORIDE 0.9% 1,000 ML IV SCH (09:00)
--- NOTE | 2019-02-15 13:13 | P.PN ---
Subjective Date of Service: 02/15/19 Primary Care Provider: None Chief Complaint: acute renal injury, urinary retention, ileus Subjective: Improving Obstructive uropathy Cr normalized edema near resolved cleared for discharge from nephrology point of view Physical Examination - Vital Signs Temperature: 97.5 F Blood Pressure: 122/82 Pulse: 95 Respirations: 16 Pulse Ox (%): 96 - Physical Exam General: In no apparent distress, Oriented x3 HEENT: Atraumatic Neck: Supple Respiratory: Clear to auscultation bilaterally, Normal air movement Cardiovascular: Regular rate/rhythm, Normal S1 S2, Edema Gastrointestinal: Normal bowel sounds Integumentary: No rashes - Studies Medications List Reviewed: Yes Assessment And Plan - Current Problems (Diagnosis) (1) Acute renal injury Current Visit: Yes Status: Acute - Plan Acute kidney injury due to obstructive uropathy Resolved HTN controlled Hyperkalemia due to INCKI resolved
--- NOTE | 2019-02-15 13:40 | P.PN ---
Subjective Date of Service: 02/15/19 Primary Care Provider: None Chief Complaint: acute renal injury, urinary retention, ileus Subjective: Improving Physical Examination - Vital Signs Temperature: 97.5 F Blood Pressure: 122/82 Pulse: 95 Respirations: 16 Pulse Ox (%): 96 - Physical Exam General: Alert, In no apparent distress, Oriented x3, Cooperative HEENT: Atraumatic Neck: Supple Respiratory: Clear to auscultation bilaterally, Normal air movement Cardiovascular: Normal pulses, Regular rate/rhythm Gastrointestinal: Normal bowel sounds, Soft and benign, Non-distended Musculoskeletal: No erythema, No tenderness, No warmth Integumentary: No tenderness/swelling, No erythema, No warmth, No cyanosis Neurological: Normal speech, Normal strength at 5/5 x4 extr, Normal tone, Normal affect - Studies Medications List Reviewed: Yes Assessment & Plan Discharge Plan: Home (Assisted living) Plan to discharge in: 24 Hours Physician Review Additional Text: Impression: Urinary retention likely related to BPH complicated with acute renal failure Ileus secondary to above Bilateral atelectasis versus pneumonia Hyperkalemia secondary to acute renal failure Hypertension Plan: Urinary retention likely related to BPH complicated with acute renal failure: In has done well. Patient with Culver catheter. Currently on Flomax. Will discuss with urology about plan of care. Anticipate discharge in the next 24 hr. His renal function is back to baseline. Case discussed from nephrology. No further intervention required at this time. Ileus secondary to above: Patient reported bowel movement again this morning. Case discussed with surgery. Will advance diet as tolerated to a GI soft. Encourage ambulation. Bilateral atelectasis versus pneumonia: Likely atelectasis. Encourage incentive spirometer. Will check chest x-ray. Hyperkalemia secondary to acute renal failure: This improved with treatment. Will continue monitor closely. Hypertension: Will provide medication and monitor closely. Time Spent Managing Pts Care (In Minutes): 55
[2019-02-15] MEDS: NACHLORIDE 0.45% 1,000 ML IV SCH (14:03)
--- NOTE | 2019-02-15 14:38 | RAD REPORT ---
EXAM DESCRIPTION: RAD - Chest Pa And Lat (2 Views) - 02/15/2019 2:23 pm CLINICAL HISTORY: follow up atelectasis Chest pain. COMPARISON: Abdomen Acute Series dated 02/14/2019; CHEST SINGLE VIEW dated 01/30/2015 FINDINGS: Bibasilar subsegmental atelectasis is again noted, unchanged. The lungs are otherwise ricarda r. The heart is normal in size. No displaced fractures. IMPRESSION: Bibasilar subsegmental atelectasis, unchanged.
[2019-02-15] MEDS: ENOXAPARIN 30 MG/0.3 ML SQ SCH (17:39)
[2019-02-15] MEDS: MORPHINE 2 MG/ML SYR IV PRN (17:44)
--- NOTE | 2019-02-15 19:07 | PN ---
Subjective: The patient was eating a regular diet, developed abdominal pain, so he is back to clears . Laboratory Studies: The patient's creatinine is down to 0.84, GFR is greater than 90, back to normal . Other electrolytes pretty much within normal limits. He is draining good urine. Cultures all neg ative. Plan: Will be to keep the catheter in for at least 2 weeks. Continue Flomax. Follow up with me in 2 weeks for voiding trial. The patient may also get a Culver plug. ISRAEL/REYES Voice ID: [id number] Report ID: [id number]
--- NOTE | 2019-02-15 20:43 | CON ---
Date of Consultation: 02/15/2019 Brief History Of Present Illness: The patient is a 58-year-old gentleman with histo ry of hypertension, tobacco and alcohol abuse, who came to the ER complaining of abdominal pain and d istention beginning approximately 1 week prior. He states that he felt that he had to urinate on , but was unable to do so. Continue to drink liquids, hoping that this would resolve this; however, he was found that this only worsen the situation. He had worsening abdominal pain, distent ion and had decreased bowel function as well. He is passing gas but no bowel movements and he came t o the ER with the abdominal distention and pain. He had a catheter placed, which ultimately obtained over 1 L of urine; however, since his admission to the hospital, he has felt significantly better. He has been having multiple bowel movements. His abdominal pain is significantly better and essentia lly resolved. He states now that he is tolerating clear liquid diet and is hungry. He has no abdomi nal pain, no more distention. No other complaints. Past Medical History: Significant for hypertension, alcohol abuse, tobacco abuse. Past Surgical History: Only right knee surgery. Colonoscopy, never. Allergies: TO SHRIMP, WHICH CAUSES HIVES. Medications: At home, none. Family History: His father had hypertension and diabetes. Social History: Current everyday smoker. Alcohol use is prevalent as well. He denies any recreatio nal drug use. Review of Systems: A 10-point review of systems other than HPI, denies. Physical Examination: Vital Signs: At the time of my examination, his BMI is 23.5. His vital signs are; blood pressure 12 2/82, pulse is 95, respiratory rate 16, temperature 97.5. General: He is awake, alert, and oriented. Psychiatric: He is appropriate, conversive. HEENT: Normocephalic. Sclerae anicteric. Mucous membranes are moist. Oropharynx clear. Neck: Supple. No JVD. Chest: Normal expansion and excursion. Cardiovascular: Regular rate and rhythm. Pulmonary: Clear to auscultation bilaterally. Abdomen: Soft, nontender, nondistended. No rebound. No guarding. No focal peritonitis. Extremities: No clubbing, cyanosis, or edema. At this time, he has a Culver catheter in place. Laboratory Data: He had laboratory exam, which reveals a white blood cell count of 7.6, hemoglobin 1 2.7, hematocrit 37.9, platelet count is 268. His chemistry showed a sodium 143, potassium 4.2, chlor isaias 111, carbon dioxide 26, BUN 17, creatinine 0.87, glucose 98. Lactic acid was 2.0 on the first. Calcium 8.1, phosphorus 2.0. PSA was 6.56. He had imaging performed, which included an acute abdomi nal series on 02/14, officially read as distended air-filled large and small bowel loops with ileus f avored over obstruction. No free air, pneumatosis, or other emergent findings. Lung base atelectasi s with possible posterior gutter pneumonia. He had a renal ultrasound performed as well on 02/14, wh ich is officially read as unremarkable renal ultrasound. Abdominal and pelvis CT on 02/13, which is officially read as moderately large volume of ascites primarily collecting in the subdiaphragmatic re gion. Bilateral posterior gutter opacification suspicious of bilateral pneumonia atelecta sis. No focal mass or lesion. No acute or GI findings on noncontrast imaging. Assessment And Plan: This is a 58-year-old male who comes in with urinary retention and a likely ile us due to current medical situation. As he is currently having normal bowel function, tolerating t, I recommend: 1.Advancement of diet. 2.Continue IV fluid hydration. 3.Serial abdominal exams. 4.I do not find the patient has a surgical abdomen at this time; however, I will follow along with ron suresh. [place]OL[place]/REYES Voice ID: [id number] Report ID: [id number]
[2019-02-16 06:14] LABS: Absolute Lymphocytes (CBC) 1.4 K/uL (0.7-4.9); Absolute Monocytes 1.1 K/uL (0.1-1.3); Absolute Neutrophil 5.6 K/uL (1.8-8.0); Basophils % 0.3 % (0-1.3); Eosinophils % 3.4 % (0-4.4); Hematocrit 38.8 % (39.6-49.0); Lymphocytes % 16.7 % (15.3-44.8); MPV 8.7 fL (7.6-11.3); Monocytes % 13.1 % (3.3-12.3); RBC Red Blood Cell Count 4.37 M/uL (4.33-5.43)
[2019-02-16 06:19] LABS: Albumin 2.6 g/dL (3.4-5.0); Magnesium 2.3 mg/dL (1.8-2.4); Phosphorus 2.7 mg/dL (2.5-4.9); Potassium 4.1 mmol/L (3.5-5.1)
--- NOTE | 2019-02-16 08:59 | P.DS ---
Admission Date: 02/13/19 Discharge Date: 02/16/19 Primary Care Provider: None Disposition: ROUTINE DISCHARGE Discharge Condition: GOOD Reason for Admission: acute renal injury, urinary retention, ileus Consultations: Urology-Dr. Medley Nephrology-Dr. Dr. Carlson Surgery-Dr. Harmon Procedures: CT scan: FINDINGS: Bilateral posterior gutter opacification is present with air bronchograms. Bilateral pneumonia is suspected. No pericardial thickening or effusion. Liver has a slightly nodular capsular contour. No focal liver lesions seen on noncontrast imaging. No splenomegaly or focal splenic finding. Pancreas is unremarkable. Gallbladder and biliary tree are also without suspicious finding. No hydronephrosis or suspicious renal mass. No significant adrenal finding. Isodense renal masses and pyelonephritis cannot be excluded in the absence of IV contrast. Urinary bladder is contracted around a Culver catheter. No dilated bowel loops or bowel wall thickening. No free air or pneumatosis. Moderate volume of ascites present primarily subdiaphragmatic in location. No omental thickening. No hernia, mass or bulky lymphadenopathy. No suspicious bony findings. IMPRESSION: Moderately large volume of ascites primarily collecting in the subdiaphragmatic region. Bilateral posterior gutter opacification suspicious for bilateral pneumonia rather than simple atelectasis. No focal mass lesion. No acute or GI process seen on noncontrast imaging. Full assessment is limited is the absence of IV contrast. CXR: COMPARISON: Abdomen Acute Series dated 02/14/2019; CHEST SINGLE VIEW dated 2014 FINDINGS: Bibasilar subsegmental atelectasis is again noted, unchanged. The lungs are otherwise clear. The heart is normal in size. No displaced fractures. IMPRESSION: Bibasilar subsegmental atelectasis, unchanged. Ab xray: FINDINGS: Lung volumes are low accentuating lung markings. Lung base atelectasis is present and potential pneumonia in each posterior gutter. Costophrenic angle blunting is present. Heart size and pulmonary vasculature are normal. No pneumothorax. Distended but nondilated air-filled large and small bowel loops are present. No free air or pneumatosis. Prominent ileus is favored over mechanical obstruction. No suspicious calcifications. IMPRESSION: Distended, air-filled large and small bowel loops with ileus favored over obstruction. No free air, pneumatosis or other emergent finding. Lung base atelectasis with possible posterior gutter pneumonia. Renal US: COMPARISON: None. FINDINGS: The right kidney measures 9 cm with a normal echotexture. The left kidney measures 10 cm with a normal echotexture. Hydronephrosis is not seen. Bladder is decompressed and poorly evaluated Ascites IMPRESSION: Unremarkable renal ultrasound. Medical Problem List: Urinary retention likely related to BPH complicated with acute renal failure Ileus secondary to above Bilateral atelectasis Hyperkalemia secondary to acute renal failure, resolved Hypertension Chronic back pain Brief History of Present Illness: 58-year-old male presented to the emergency room with abdominal pain for 1 week. Patient also had not urinated during that time. Patient was found to have urinary retention. Culver catheter was placed in the emergency room. 2 L of urine produced. Patient also found to have acute renal failure with possible ileus. Patient was admitted for treatment. Hospital Course: Patient presented with abdominal pain and urinary retention. Patient found to be in acute renal failure likely related to BPH. Culver catheter placed with improvement. Patient placed on Flomax. PSA was elevated. Urology, surgery and nephrology consulted. Renal ultrasound unremarkable. During the course of the stay patient was also evaluated for ileus. Diet was advanced. At discharge he is without any significant abdominal pain, abdominal distention, nausea or vomiting. He has tolerated his diet. No surgical intervention was required. Blood and urine culture negative. At discharge patient will continue with Flomax 0.4 mg daily. Patient will continue with Culver catheter for 2 weeks. Patient will have removal of Culver catheter trial after that time. Patient will follow up with urology within 1-2 weeks to further address. Patient will be taught using Culver plug. Chest x-ray revealed atelectasis. Patient continues with incentive spirometer. Patient does not appear to have pneumonia. No need for antibiotics at discharge. Recommend to continue with incentive spirometer. Patient initially had hyperkalemia related to acute renal failure. This resolved after Culver catheter was placed. Renal function now within normal range. Patient may follow up with nephrology in the future to follow up this hospitalization. Patient with hypertension. Patient will be started on Norvasc 5 mg daily. Recommend to monitor his blood pressures daily. Recommend to maintain blood pressures less 150/80. Further adjustment can be done by his PCP. Patient will establish care with a PCP to follow up this hospitalization. Patient likely with underlying chronic back pain. 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 Patient may take Tylenol as needed for pain. Patient may require further workup as an outpatient. Vital Signs/Physical Exam: Temp Pulse Resp BP Pulse Ox 97.3 F 89 18 154/95 H 94 02/16/19 04:00 02/16/19 04:00 02/16/19 04:00 02/16/19 04:00 02/16/19 04:00 General: Alert, In no apparent distress, Oriented x3, Cooperative HEENT: Atraumatic Neck: Supple Respiratory: Clear to auscultation bilaterally, Normal air movement Cardiovascular: Normal pulses, Regular rate/rhythm Gastrointestinal: Normal bowel sounds, Soft and benign, Non-distended, No tenderness, No masses, No rebound, No guarding Musculoskeletal: No erythema, No tenderness, No warmth Integumentary: No tenderness/swelling, No erythema, No warmth, No cyanosis Neurological: Normal speech, Normal strength at 5/5 x4 extr, Normal tone, Normal affect Urinary: Culver catheter Laboratory Data at Discharge: WBC 8.5 K/uL (4.3-10.9) 02/16/19 05:44 Hgb 13.1 g/dL (13.6-17.9) L 02/16/19 05:44 Hct 38.8 % (39.6-49.0) L 02/16/19 05:44 Plt Count 279 K/uL (152-406) 02/16/19 05:44 Sodium 141 mmol/L (136-145) 02/16/19 05:44 Potassium 4.1 mmol/L (3.5-5.1) 02/16/19 05:44 BUN 12 mg/dL (7-18) 02/16/19 05:44 Creatinine 1.03 mg/dL (0.55-1.3) 02/16/19 05:44 Glucose 97 mg/dL (74-106) 02/16/19 05:44 Phosphorus 2.7 mg/dL (2.5-4.9) 02/16/19 05:44 Magnesium 2.3 mg/dL (1.8-2.4) 02/16/19 05:44 Total Bilirubin 0.8 mg/dL (0.2-1.0) 02/13/19 19:55 AST 11 U/L (15-37) L 02/13/19 19:55 ALT 26 U/L (12-78) 02/13/19 19:55 Alkaline Phosphatase 81 U/L (45-117) 02/13/19 19:55 Lipase 68 U/L (73-393) L 02/13/19 19:55 Home Medications: Amlodipine [Norvasc] 5 mg PO DAILY #30 tab 02/16/19 Tamsulosin [Flomax*] 0.4 mg PO DAILY #30 cap 02/16/19 New Medications: Amlodipine [Norvasc] 5 mg PO DAILY #30 tab Tamsulosin [Flomax*] 0.4 mg PO DAILY #30 cap Patient Discharge Instructions: 1. Patient will need to establish care with a PCP to follow up this hospitalization. 2. Patient presented with abdominal pain and urinary retention. Patient found to be in acute renal failure likely related to BPH. Culver catheter placed with improvement. Patient placed on Flomax. PSA was elevated. Urology, surgery and nephrology consulted. Renal ultrasound unremarkable. During the course of the stay patient was also evaluated for ileus. Diet was advanced. At discharge he is without any significant abdominal pain, abdominal distention, nausea or vomiting. He has tolerated his diet. No surgical intervention was required. Blood and urine culture negative. At discharge patient will continue with Flomax 0.4 mg daily. Patient will continue with Culver catheter for 2 weeks. Patient will have removal of Culver catheter trial after that time. Patient will follow up with urology within 1-2 weeks to further address. Patient will be taught using Culver plug. 3. Chest x-ray revealed atelectasis. Patient continues with incentive spirometer. Patient does not appear to have pneumonia. No need for antibiotics at discharge. Recommend to continue with incentive spirometer. 4. Patient initially had hyperkalemia related to acute renal failure. This resolved after Culver catheter was placed. Renal function now within normal range. Patient may follow up with nephrology in the future to follow up this hospitalization. 5. Patient with hypertension. Patient will be started on Norvasc 5 mg daily. Recommend to monitor his blood pressures daily. Recommend to maintain blood pressures less 150/80. Further adjustment can be done by his PCP. 6. Patient will establish care with a PCP to follow up this hospitalization. 7. Patient likely with underlying chronic back pain. 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 Patient may take Tylenol as needed for pain. Patient may require further workup as an outpatient. Diet: AHA Activity: Ad james Time spent managing pt's care (in minutes): 55
[2019-02-16] MEDS: THIAMINE 200 MG/2 ML INJ IVP SCH (09:00)
[2019-02-16] MEDS: FAMOTIDINE 20 MG/2 ML VIAL IV SCH (09:00)
[2019-02-16] MEDS: CEFTRIAXONE/SWI 1gm 1 GM/10 ML SYR IV SCH (09:00)
[2019-02-16] MEDS: FOLIC ACID 1 MG in NA CHLORIDE 0.9% 50 ML IV SCH (09:00)
[2019-02-16] MEDS: TAMSULOSIN 0.4 MG SR CAP PO SCH (09:11)
[2019-02-16] MEDS: NACHLORIDE 0.45% 1,000 ML IV SCH (09:15)
--- NOTE | 2019-02-16 10:02 | P.PN ---
Subjective Date of Service: 02/16/19 Primary Care Provider: None Chief Complaint: acute renal injury, urinary retention, ileus Subjective: Improving (tolerating soft diet, normal bowel function, no pain) Physical Examination - Vital Signs Temperature: 96.9 F Blood Pressure: 132/88 Pulse: 85 Respirations: 16 Pulse Ox (%): 92 - Physical Exam General: Alert, In no apparent distress, Cooperative Gastrointestinal: Soft and benign, Non-distended, No tenderness, No masses, No rebound, No guarding - Studies Medications List Reviewed: Yes Assessment And Plan - Plan ok to DC home from surgical standpoint, follow up with primary care doctor Physician Review Additional Text: Impression: Urinary retention likely related to BPH complicated with acute renal failure Ileus secondary to above Bilateral atelectasis versus pneumonia Hyperkalemia secondary to acute renal failure Hypertension Plan: Urinary retention likely related to BPH complicated with acute renal failure: In has done well. Patient with Culver catheter. Currently on Flomax. Will discuss with urology about plan of care. Anticipate discharge in the next 24 hr. His renal function is back to baseline. Case discussed from nephrology. No further intervention required at this time. Ileus secondary to above: Patient reported bowel movement again this morning. Case discussed with surgery. Will advance diet as tolerated to a GI soft. Encourage ambulation. Bilateral atelectasis versus pneumonia: Likely atelectasis. Encourage incentive spirometer. Will check chest x-ray. Hyperkalemia secondary to acute renal failure: This improved with treatment. Will continue monitor closely. Hypertension: Will provide medication and monitor closely.
--- NOTE | 2019-02-16 10:24 | P.PN ---
Subjective Date of Service: 02/16/19 Primary Care Provider: None Chief Complaint: acute renal injury, urinary retention, ileus Obstructive uropathy Cr normalized edema near resolved cleared for discharge from nephrology point of view Physical Examination - Vital Signs Temperature: 96.9 F Blood Pressure: 132/88 Pulse: 85 Respirations: 16 Pulse Ox (%): 92 - Physical Exam General: Oriented x3 Neck: Supple, Without JVD or thyroid abnormality Respiratory: Clear to auscultation bilaterally Cardiovascular: Regular rate/rhythm, Normal S1 S2, No gallops, No rubs, No murmurs, Edema Gastrointestinal: Normal bowel sounds - Studies Medications List Reviewed: Yes Assessment And Plan - Current Problems (Diagnosis) (1) Acute renal injury Current Visit: Yes Status: Acute - Plan Acute kidney injury due to obstructive uropathy Resolved HTN controlled Hyperkalemia due to NICKI resolved
--- NOTE | 2019-02-16 11:12 | RAD REPORT ---
EXAM DESCRIPTION: Jeffrey Pa And Lat (2 Views)02/16/2019 10:15 am CLINICAL HISTORY: Cough COMPARISON: February 15, 2019 FINDINGS: Areas of atelectasis are present within the lung bases without significant change Upper lobes appear clear. The heart is normal size
[2019-02-16 14:17] VITALS: BP 136/91; TEMP 97.2
== END 2019-02-16 12:20 | disposition home or self-care (01) | DRG 683 ==
LOC: ER 19:22 → ERHOLD 23:22 → 2ND 23:50
PROVIDERS: ADMIT Internal Medicine; ATTEND Family Medicine
DX: N17.9 Acute kidney failure, unspecified (principal); K56.7 Ileus, unspecified; N13.8 Other obstructive and reflux uropathy; R18.8 Other ascites; J98.11 Atelectasis; N40.1 Benign prostatic hyperplasia with lower urinary tract symptoms; R33.8 Other retention of urine; E87.5 Hyperkalemia; F17.210 Nicotine dependence, cigarettes, uncomplicated; I10 Essential (primary) hypertension; F10.10 Alcohol abuse, uncomplicated; Z23 Encounter for immunization; Z91.013 Allergy to seafood
CPT/HCPCS: 36415; 51702; 71046; 74022; 74176; 76770; 80048; 80069; 80076; 81001; 81003; 82570; 82962; 83605; 83690; 83735; 83970; 84132; 84145; 84153; 84156; 85025; 87040; 87086; 87088; 90670; 93005; 96374; 96375; 97163; 99285; G0009; G0103; J0456; J0696; J1650; J2270; J3411; J7030

== ENCOUNTER 2024-05-21 16:18 | Inpatient (IN) | payer OTHER ==
[2024-05-21 17:11] LABS: Absolute Basophils 0.1 K/uL (0-0.5); Absolute Eosinophils 0.2 K/uL (0-0.5); Absolute Lymphocytes (CBC) 2.7 K/uL (0.7-4.9); Absolute Monocytes 0.8 K/uL (0.1-1.3); Absolute Neutrophil 3.3 K/uL (1.8-8.0); Basophils % 0.8 % (0-1.3); Hemoglobin 13.4 g/dL (13.6-17.9); Lymphocytes % 38.1 % (15.3-44.8); MCH 29.5 pg (27.0-35.0); MCHC 32.7 g/dL (32.0-36.0); MCV 90.3 fL (80-100); MPV 8.4 fL (7.6-11.3); Monocytes % 11.9 % (3.3-12.3); Neutrophils % 46.2 % (41.7-73.7); Nucleated Red Blood Cells % 0.1 % (0-0); Platelets 323 thou/uL (152-406); RBC Red Blood Cell Count 4.54 M/uL (4.33-5.43); Red Cell Distribution Width 14.4 % (12.1-15.2)
[2024-05-21 17:27] LABS: Anion Gap 5.8 mEq/L (5.0-15.0); Potassium 3.8 mEq/L (3.5-5.1); Troponin High Sensitivity 11.6 pg/mL (<58.9)
[2024-05-21 17:43] LABS: PT Prothrombin Time 11.8 SECONDS (9.4-12.5); PTT, Activated Partial Thromb 27.9 SECONDS (24.3-36.9); Protime INR 1.06
[2024-05-21] MEDS ORDERED: ASPIRIN 81 MG CHEWABLE TABLET ONE (17:54)
--- NOTE | 2024-05-21 17:55 | RAD REPORT ---
EXAM DESCRIPTION: CTHead angio05/21/2024 5:25 pm CLINICAL HISTORY: numbness/CVA COMPARISON: none TECHNIQUE: 100 cc Isovue [address] angiogram of the head was obtained. 3D MIPS reconstruction performed. All CT scans are performed using dose optimization technique as appropriate and may include automated exposure control or mA/KV adjustment according to patient size. FINDINGS: The distal internal carotid, basilar, anterior cerebral, middle cerebral and posterior cer ebral arteries do not demonstrate a significant stenosis Feet origin posterior cerebral arteries An aneurysm is not seen No large vessel occlusion IMPRESSION: No significant vascular abnormality is displayed
--- NOTE | 2024-05-21 17:55 | RAD REPORT ---
EXAM DESCRIPTION: Catie Angio05/21/2024 5:25 pm CLINICAL HISTORY: Numbness/CVA COMPARISON: None TECHNIQUE: 100 cc Isovue [address] angiogram of the neck was obtained. 3D MIPS reconstruction performed. All CT scans are performed using dose optimization technique as appropriate and may include automated exposure control or mA/KV adjustment according to patient size. FINDINGS: Visualized aortic arch and great vessels unremarkable Mild plaque within common carotid, internal carotid and external carotid arteries bilaterally Hypoplastic left vertebral artery Right vertebral artery unremarkable No dissection is seen. No high-grade stenosis [place] crieria Mild stenosis 0 to 49 % Moderate stenosis 50-69% Severe stenosis 70-99% IMPRESSION: No significant vascular abnormality is displayed
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
[2024-05-21] MEDS ORDERED: ONDANSETRON 4 MG/2 ML VIAL IV PRN (18:32)
[2024-05-21] MEDS ORDERED: ACETAMINOPHEN 325 MG TABLET PO PRN (18:32)
--- NOTE | 2024-05-21 18:32 | P.HP ---
Certification for Inpatient Patient admitted to: Observation With expected LOS: <2 Midnights Practitioner: I am a practitioner with admitting privileges, knowledge of patient current condition, hospital course, and medical plan of care. Services: Services provided to patient in accordance with Admission requirements found in Title 42 Section 412.3 of the Code of Federal Regulations Patient History Date of Service: 05/22/24 Reason for admission: R/o CVA History of Present Illness: 63 yrs old Male with past medical history of hypertension, hyperlipidemia, BPH for Possible Stroke. Patient came to ER after obtaining outpatient MR imaging which showed concern for possible stroke and was told to come to the emergency department. MRI done outside was showing 10 x 4 mm acute infarction of the right periventricular space next to the right lateral ventricle. Patient reports his initial symptom started yesterday at approximately 1300, has left upper extremity numbness and weakness which got resolved and denies any weakness at the time of interview. No fever or chills. No nausea vomiting or diarrhea. Denies any chest pain Denies any palpitations The patient was assessed in the ER and was admitted for further management of possible CVA Allergies shrimp Allergy (Verified 02/14/19 01:00) Hives/Rash Home medications list reviewed: Yes Home Medications: Amlodipine [Norvasc] 5 mg PO DAILY #30 tab 02/16/19 Tamsulosin [Flomax*] 0.4 mg PO DAILY #30 cap 02/16/19 - Past Medical/Surgical History Diabetic: No Past Medical History: Reviewed- Non-Contributory -: Hypertension -: alcohol abuse -: tobacco abuse Past Surgical History: Reviewed- Non-Contributory -: right knee sx - Family History Family History: Reviewed- Non-Contributory - Family History Father -: Hypertension, Diabetes Notes: - Social History Smoking Status: Never smoker Alcohol use: Yes CD- Drugs: No Caffeine use: Yes Review of Systems 10-point ROS is otherwise unremarkable Physical Examination - Vital Signs Temperature: 97.8 F Blood Pressure: 130/82 Pulse: 74 Respirations: 18 Pulse Ox (%): 94 - Physical Exam General: Alert, In no apparent distress, Oriented x3 HEENT: Atraumatic, Normocephalic Neck: Supple, JVD not distended Respiratory: Clear to auscultation bilaterally, Normal air movement Cardiovascular: Normal pulses, Regular rate/rhythm, Normal S1 S2 Capillary refill: <2 Seconds Gastrointestinal: Soft and benign, W/out hepatosplenomegaly Musculoskeletal: No clubbing, No swelling Integumentary: No rashes, No breakdown Neurological: Normal gait, Normal speech, Normal strength at 5/5 x4 extr, Normal tone, Cranial nerves 3-12 intact Lymphatics: No axilla or inguinal lymphadenopathy - Studies Laboratory Data (last 24 hrs) 05/21/24 05/21/24 05/21/24 16:44 16:44 16:44 WBC 7.00 Hgb 13.4 L Hct 41.0 Plt Count 323 PT 11.8 INR 1.06 APTT 27.9 Sodium 138 Potassium 3.8 BUN 10 Creatinine 0.99 Glucose 84 Assessment and Plan - Plan CVA/TIA No focal weakness Numbness of left-sided body Started on aspirin and statin MRI brain findings noted Monitor neuro vital signs Monitor under telemetry Hypertension Antihypertensives titrated Continue home medications and titrate as needed Hyperlipidemia Continue statin GI/DVT prophylaxis Advanced directive full code Discharge Plan: Home Plan to discharge in: 48 Hours - Advance Directives Does patient have a Living Will: No Does patient have a Durable POA for Healthcare: No - Code Status/Comfort Care Code Status Assessed: Yes Code Status: Full Code Time Spent Managing Pts Care (In Minutes): 48
[2024-05-21 20:38] VITALS: BMI 26.4
[2024-05-21 21:09] LABS: Specific Gravity > 1.030 (1.005-1.030); Sqamous Epithelial <5 /HPF (None Seen); Urine Bacteria None Seen /HPF (<20); Urine Bilirubin NEGATIVE (Negative); Urine Blood Negative (Negative); Urine Clarity Clear (Clear); Urine Color Colorless (Yellow); Urine Culture Reflex Order NOT NEEDED; Urine Glucose NEGATIVE (Negative); Urine Ketones NEGATIVE (Negative); Urine Microscopic Reflex YN ORDER UMIC; Urine Mucus Slight /HPF (None Seen); Urine Nitrite NEGATIVE (Negative); Urine Protein NEGATIVE (Negative); Urine RBC <5 /HPF (None Seen); Urine Urobilinogen Normal (Normal); Urine WBC None Seen /HPF (<5); Urine pH 5.5 (5.0-7.0)
[2024-05-22] MEDS ORDERED: ENOXAPARIN 40 MG/0.4 ML SQ ONE (08:39)
[2024-05-22] MEDS: ENOXAPARIN 40 MG/0.4 ML SQ SCH (09:00)
[2024-05-22 09:27] LABS: Absolute Eosinophils 0.3 K/uL (0-0.5); Absolute Lymphocytes (CBC) 1.7 K/uL (0.7-4.9); Absolute Monocytes 0.4 K/uL (0.1-1.3); Absolute Neutrophil 3.5 K/uL (1.8-8.0); Basophils % 0.6 % (0-1.3); Eosinophils % 4.3 % (0-4.4); Hematocrit 44.3 % (39.6-49.0); Hemoglobin 14.4 g/dL (13.6-17.9); Lymphocytes % 29.4 % (15.3-44.8); MCH 29.5 pg (27.0-35.0); MCHC 32.6 g/dL (32.0-36.0); MCV 90.7 fL (80-100); Monocytes % 7.6 % (3.3-12.3); Neutrophils % 58.1 % (41.7-73.7); Platelets 325 thou/uL (152-406); RBC Red Blood Cell Count 4.89 M/uL (4.33-5.43); Red Cell Distribution Width 14.5 % (12.1-15.2)
[2024-05-22 09:43] LABS: Albumin 3.1 g/dL (3.4-5.0); Albumin/Globulin Ratio 0.8 (1.1-1.8); Anion Gap 7.7 mEq/L (5.0-15.0); Bilirubin Total 0.6 mg/dL (0.2-1.0); Globulin 4.1 g/dL (2.3-3.5); Potassium 3.7 mEq/L (3.5-5.1); Protein, Total 7.2 g/dL (6.4-8.2)
[2024-05-22] MEDS: PNEUMOCOCCAL VACCINE 0.5 ML IMVAC ONE (14:00)
[2024-05-22] MEDS: CLOPIDOGREL 75 MG TABLET PO ONE (16:01)
[2024-05-22] MEDS: ASPIRIN EC 81 MG TAB PO SCH (16:01)
--- NOTE | 2024-05-22 16:14 | P.PN ---
Subjective Date of Service: 05/22/24 Chief Complaint: R/o CVA Patient denies any problems today. He denies any limb weakness. He has no trouble swallowing and no speech problem. Physical Examination - Vital Signs Temperature: 97.1 F Blood Pressure: 145/97 Pulse: 67 Respirations: 20 Pulse Ox (%): 98 - Studies Laboratory Data (last 24 hrs) 05/21/24 05/21/24 05/21/24 16:44 16:44 16:44 WBC 7.00 Hgb 13.4 L Hct 41.0 Plt Count 323 PT 11.8 INR 1.06 APTT 27.9 Sodium 138 Potassium 3.8 BUN 10 Creatinine 0.99 Glucose 84 Assessment And Plan - Plan Physical examination General: Alert and oriented x3, NAD, HEENT: Conjunctiva not pale, anicteric sclera Neck: Supple, no elevated JVD Heart: Heart sounds 1 and 2 normal, regular rhythm, normal rate, no pedal edema Lungs: Clear to auscultation bilaterally, adequate breath sounds bilaterally, no rhonchi or crackles. Abdomen: Soft, nondistended, nontender, normal bowel sounds. Extremities: No tenderness, no deformity Skin: Normal skin turgor, no rash, no nodules or ulcers. Neuro: No focal motor deficit. Normal speech. Psychiatry: Normal mood, no agitation. Diagnosis Acute right cortical infarct Outside MRI suggest acute infarct in the right periventricular area in the cortex. Neurologic symptoms resolved CTA head and neck unremarkable, no significant artery occlusion warranting intervention. Continue stroke workup with echocardiogram. Aspirin and Plavix Folic acid Statins. Neurochecks. PT and OT Speech therapy consult. Essential hypertension Permissive hypertension Hold home antihypertensives for now DVT prophylaxis: Lovenox Code status: full code.
[2024-05-22] MEDS: ATORVASTATIN 40 MG TAB PO SCH (20:16)
[2024-05-23] MEDS: FOLIC ACID 1 MG TABLET PO SCH (08:07)
[2024-05-23 09:05] VITALS: O2SAT 98
--- NOTE | 2024-05-23 15:47 | P.DS ---
Admission Date: 05/23/24 Discharge Date: 05/23/24 Disposition: ROUTINE DISCHARGE Discharge Condition: FAIR Reason for Admission: R/o CVA Brief History of Present Illness: 63 yrs old Male with past medical history of hypertension, hyperlipidemia, BPH came to ER after obtaining outpatient MR imaging which showed a stroke and was told to come to the emergency department. MRI done outside was showing 10 x 4 mm acute infarction of the right periventricular space next to the right lateral ventricle. Patient reported he was experiencing left upper extremity numbness and weakness which got resolved. He denied any weakness during examination for admission per report. The patient was assessed in the ER and was admitted for further management of acute CVA. Hospital Course: Patient was admitted to the medical floor and the following medical problems addressed: Acute right cortical infarct Outside MRI showed acute infarct in the right periventricular area in the cortex. Neurologic symptoms resolved, patient denied any weakness or numbness. CTA head and neck unremarkable, no significant artery occlusion warranting intervention. Patient placed on aspirin and Plavix Patient also prescribed folic acid and statin. LDL 117 PT evaluated patient and determined he has no further needs. Speech therapy evaluated patient, no problem with swallowing or speech and no further needs recommended. Essential hypertension Permissive hypertension Hold home dose amlodipine during the hospital stay and resumed it on discharge Vital Signs/Physical Exam: Temp Pulse Resp BP Pulse Ox 97.7 F 70 16 148/77 H 98 05/23/24 12:00 05/23/24 12:00 05/23/24 12:00 05/23/24 12:00 05/23/24 12:00 General: Alert, In no apparent distress, Oriented x3 HEENT: Mucous membr. moist/pink, EOMI, Sclerae nonicteric Neck: JVD not distended Respiratory: Clear to auscultation bilaterally, Normal air movement Cardiovascular: No edema, Regular rate/rhythm, Normal S1 S2 Gastrointestinal: Normal bowel sounds, Soft and benign, Non-distended, No tenderness Integumentary: No rashes, No cyanosis Neurological: Normal strength at 5/5 x4 extr, Cranial nerves 3-12 intact Laboratory Data at Discharge: WBC 5.90 thou/uL (4.3-10.9) 05/22/24 09:13 Hgb 14.4 g/dL (13.6-17.9) 05/22/24 09:13 Hct 44.3 % (39.6-49.0) 05/22/24 09:13 Plt Count 325 thou/uL (152-406) 05/22/24 09:13 PT 11.8 SECONDS (9.4-12.5) 05/21/24 16:44 INR 1.06 05/21/24 16:44 APTT 27.9 SECONDS (24.3-36.9) 05/21/24 16:44 Sodium 139 mEq/L (136-145) 05/22/24 09:13 Potassium 3.7 mEq/L (3.5-5.1) 05/22/24 09:13 BUN 10 mg/dL (7-18) 05/22/24 09:13 Creatinine 0.99 mg/dL (0.70-1.30) 05/22/24 09:13 Glucose 142 mg/dL (74-106) H 05/22/24 09:13 Total Bilirubin 0.6 mg/dL (0.2-1.0) 05/22/24 09:13 AST 16 U/L (15-37) 05/22/24 09:13 ALT 26 U/L (16-61) 05/22/24 09:13 Alkaline Phosphatase 79 U/L (45-117) 05/22/24 09:13 LDL Cholesterol Direct 117 mg/dL (100-129) 05/22/24 09:13 Home Medications: Amlodipine [Norvasc*] 5 mg PO DAILY #30 tab 02/16/19 Tamsulosin [Flomax*] 0.4 mg PO DAILY #30 cap 02/16/19 Aspirin [Aspirin EC 81 MG] 81 mg PO DAILY #30 tab 05/23/24 Atorvastatin Calcium [Lipitor] 40 mg PO BEDTIME #30 tab 05/23/24 Clopidogrel Bisulfate [Plavix] 75 mg PO DAILY #30 tab 05/23/24 Folic Acid 1 mg PO DAILY #30 tab 05/23/24 New Medications: Aspirin [Aspirin EC 81 MG] 81 mg PO DAILY #30 tab Folic Acid 1 mg PO DAILY #30 tab Atorvastatin Calcium [Lipitor] 40 mg PO BEDTIME #30 tab Clopidogrel Bisulfate [Plavix] 75 mg PO DAILY #30 tab Diet: AHA Activity: Ad james Followup: Ladonna Han MD [Primary Care Provider] - 1-2 Weeks Time spent managing pt's care (in minutes): 33
[2024-05-23 17:36] VITALS: BP 149/84; TEMP 97.9
--- NOTE | 2024-05-24 13:14 | EKG ---
Test Date: 2024-05-21 Test Time: 16:44:00 Natural Resources Engineer: CHRISTA MEASUREMENT RESULTS: Intervals: Rate: 72 UT: 160 QRSD: 82 QT: 396 QTc: 433 Freedom: P: 37 UT: 160 QRS: 40 T: 38 INTERPRETIVE STATEMENTS: Normal sinus rhythm Normal ECG Compared to ECG 02/13/2019 21:55:54 Sinus tachycardia no longer present T-wave abnormality no longer present Electronically Signed On 05-24-24 13:06:43 CDT by Keith Rubin
--- NOTE | 2024-05-24 13:22 | ECHO ---
HEIGHT: 5 ft 11 in WEIGHT: 190 lb 0 oz DATE OF STUDY: 05/23/[address]: Larry Jacobson MD 2-DIMENSIONAL: YES M.MODE: YES DOPPLER: YES COLOR FLOW: YES TDS: PORTABLE: YES DEFINITY: BUBBLE STUDY: DIAGNOSIS: STROKE CARDIAC HISTORY: CATHERIZATION: NO SURGERY: NO PROSTHETIC VALVE: NO PACEMAKER: NO MEASUREMENTS (cm) DIASTOLIC (NORMALS) SYSTOLIC (NORMALS) IVSd 1.0 (0.6-1.2) LA Diam 3.1 (1.9-4.0) LVEF 77% LVIDd 4.5 (3.5-5.7) LVIDs 2.5 (2.0-3.5) %FS 46% LVPWd 1.1 (0.6-1.2) Ao Diam 3.3 (2.0-3.7) 2 DIMENSIONAL ASSESSMENT: RIGHT ATRIUM: NORMAL LEFT ATRIUM: NORMAL RIGHT VENTRICLE: NORMAL LEFT VENTRICLE: NORMAL TRICUSPID VALVE: MILD TRICUSPID REGURGITATION MITRAL VALVE: TRACE MITRAL REGURGITATION PULMONIC VALVE: NORMAL AORTIC VALVE: NORMAL PERICARDIAL EFFUSION: NONE AORTIC ROOT: NORMAL LEFT VENTRICULAR WALL MOTION: NORMAL DOPPLER/COLOR FLOW: SEE BELOW COMMENTS: 1. NORMAL LEFT VENTRICULAR EJECTION FRACTION 60-65% WITH NORMAL WALL MOTION 2. GRADE I DIASTOLIC DYSFUNCTION 3. MILD TRICUSPID REGURGITATION TECHNOLOGIST: RAY DANIELSON
== END 2024-05-23 19:25 | disposition home or self-care (01) | DRG 66 ==
LOC: ER 16:18 → ERHOLD 18:32 → 2ND 05-22 11:04 → OBSVTOIN 05-23 10:36
PROVIDERS: ADMIT Family Medicine; ATTEND Internal Medicine
DX: I63.9 Cerebral infarction, unspecified (principal); I10 Essential (primary) hypertension; E78.5 Hyperlipidemia, unspecified; N40.0 Benign prostatic hyperplasia without lower urinary tract symptoms; G83.24 Monoplegia of upper limb affecting left nondominant side; F17.210 Nicotine dependence, cigarettes, uncomplicated; R29.700 NIHSS score 0; R20.0 Anesthesia of skin; Z79.82 Long term (current) use of aspirin; Z79.02 Long term (current) use of antithrombotics/antiplatelets; Z91.013 Allergy to seafood; Z79.899 Other long term (current) drug therapy
CPT/HCPCS: 36415; 70496; 70498; 80048; 80053; 81001; 84484; 85025; 85610; 85730; 92523; 92610; 93005; 93306; 97161; 97165; 99285; G0378; J1650; Q9967

== ENCOUNTER 2024-06-05 12:49 | Emergency (ER) | payer OTHER ==
[2024-06-05 13:28] LABS: Absolute Basophils 0.1 K/uL (0-0.5); Absolute Eosinophils 0.3 K/uL (0-0.5); Absolute Monocytes 0.7 K/uL (0.1-1.3); Absolute Neutrophil 2.9 K/uL (1.8-8.0); Eosinophils % 4.8 % (0-4.4); Hematocrit 41.4 % (39.6-49.0); Hemoglobin 13.8 g/dL (13.6-17.9); Lymphocytes % 33.1 % (15.3-44.8); MCH 29.6 pg (27.0-35.0); MCHC 33.3 g/dL (32.0-36.0); MCV 88.8 fL (80-100); MPV 7.7 fL (7.6-11.3); Monocytes % 12.2 % (3.3-12.3); Neutrophils % 48.9 % (41.7-73.7); Nucleated Red Blood Cells % 0.2 % (0-0); Platelets 320 thou/uL (152-406); RBC Red Blood Cell Count 4.67 M/uL (4.33-5.43)
[2024-06-05 13:33] LABS: PT Prothrombin Time 12.5 SECONDS (9.4-12.5); PTT, Activated Partial Thromb 32.9 SECONDS (24.3-36.9); Protime INR 1.12
--- NOTE | 2024-06-05 13:34 | RAD REPORT ---
EXAM DESCRIPTION: CT - Ct Stroke Brain Wo Cont - 06/05/2024 1:11 pm CLINICAL HISTORY: STROKE ALERT COMPARISON: Head angio dated 05/21/2024 TECHNIQUE: Noncontrast head CT images were obtained without IV contrast. Multiplanar reformats were generated and reviewed. All CT scans are performed using dose optimization technique as appropriate and may include automated exposure control or mA/KV adjustment according to patient size. FINDINGS: No intracranial hemorrhage, mass, or edema. Midline structures are unremarkable. Normal ventricular caliber for age. Valle-white matter differentiation is preserved, without evidence of acute infarct. No abnormal extra- axial fluid collections. Mastoid air cells and visualized portions of the paranasal sinuses are clear. No acute bony findings. IMPRESSION: No evidence of an acute intracranial process. The findings were communicated to Tobias Arndt on 06/05/2024 at 13:21 hours.
[2024-06-05 13:47] LABS: Anion Gap 9.7 mEq/L (5.0-15.0); Potassium 3.7 mEq/L (3.5-5.1); Troponin High Sensitivity 11.7 pg/mL (<58.9)
--- NOTE | 2024-06-05 15:16 | RAD REPORT ---
EXAM DESCRIPTION: SERAChest Single View06/05/2024 2:29 pm CLINICAL HISTORY: dizziness COMPARISON: Chest Pa And Lat (2 Views) dated 02/16/2019; Chest Pa And Lat (2 Views) dated 02/15/2019; Ab domen Acute Series dated 02/14/2019; CHEST SINGLE VIEW dated 01/30/2015 TECHNIQUE: Portable AP view of the chest. FINDINGS: The lungs are clear, apart from stable right basilar streaky atelectasis. No pneumothorax or effusion. The cardiomediastinal contours are unremarkable. IMPRESSION: No acute cardiopulmonary process.
--- NOTE | 2024-06-05 16:37 | RAD REPORT ---
EXAM DESCRIPTION: MRI - Brain Wo Cont - 06/05/2024 3:23 pm CLINICAL HISTORY: dizziness, ataxia COMPARISON: Head CT of earlier the same day. CT angiogram and prior brain MRI 05/21/2024 TECHNIQUE: Multiplanar multisequence MRI of the brain performed without IV contrast. FINDINGS: Motion artifact somewhat limits evaluation, despite attempts at repeat imaging. Linear focus of diffusion restriction along the right body of caudate posteriorly mild demonstrates s ome T2 shine through, consistent with time interval changes of a small subacute infarct. No other layne dence of acute infarct or other diffusion signal abnormality. No evidence of acute intracranial hemorrhage or abnormal extra-axial fluid collections. Mild diffuse parenchymal volume loss. Ventricular caliber otherwise within normal for age. Midline st ructures are unremarkable. Other subtle subcortical and deep white matter T2/FLAIR hyperintensities, nonspecific, but suggestive of chronic small vessel ischemic changes. No mass effect or midline shift. Major vascular flow voids are preserved. Mastoid air cells and paranasal sinuses are clear. IMPRESSION: Expected time interval changes of a known small subacute infarct along the right body of caudate nucleus posteriorly. No other acute intracranial process. No evidence of ventriculomegaly or mass effect.
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
[2024-06-05 18:45] VITALS: BP 132/78; TEMP 97.3; O2SAT 97
--- NOTE | 2024-06-06 16:59 | EKG ---
Test Date: 2024-06-05 Test Time: 13:21:03 Professor Of Visual Arts: TAURUS MEASUREMENT RESULTS: Intervals: Rate: 83 NM: 168 QRSD: 78 QT: 376 QTc: 441 [place]: P: 61 NM: 168 QRS: 40 T: 57 INTERPRETIVE STATEMENTS: Normal sinus rhythm Low voltage QRS Borderline ECG Compared to ECG 05/21/2024 16:44:00 Low QRS voltage now present Electronically Signed On 06-06-24 16:57:01 CDT by Paul Mansfield
== END 2024-06-05 17:31 | disposition home or self-care (01) ==
LOC: ER 12:49
DX: G45.9 Transient cerebral ischemic attack, unspecified (principal); R29.700 NIHSS score 0; I10 Essential (primary) hypertension
CPT/HCPCS: 36415; 70450; 70551; 71045; 80048; 82947; 84484; 85025; 85610; 85730; 93005

== ENCOUNTER 2024-07-18 11:21 | Emergency (ER) | payer OTHER ==
--- NOTE | 2024-07-18 11:48 | RAD REPORT ---
EXAM: CT brain without contrast HISTORY: Dizziness COMPARISON: May 2024 TECHNIQUE: Multiple contiguous axial images were obtained and a CT of the brain without contrast. Sagittal and coronal reformats were performed. Automated exposure control, adjustment of the mA and/or kV according to patient size, and/or itera tive reconstruction. Unless otherwise specified, incidental findings do not require dedicated imaging follow-u FINDINGS: An intracranial bleed is not seen Ventricles are normal caliber No extra-axial fluid collection noted No significant hypodensity within the brain No fluid within the visualized sinuses or mastoids noted. IMPRESSION: No acute intracranial abnormality noted. If the patient's symptoms persist MRI of the brain would be recommended.
[2024-07-18] MEDS ORDERED: ONDANSETRON 4 MG/2 ML VIAL ONE (11:49)
[2024-07-18] MEDS ORDERED: MECLIZINE HCL 12.5 MG TAB ONE (11:49)
[2024-07-18] MEDS ORDERED: NA CHLORIDE 0.9% 1,000 ML ONE (11:50)
[2024-07-18] MEDS ORDERED: FOLIC ACID 5 MG/ML VIAL ONE (11:50)
[2024-07-18 12:02] LABS: Absolute Basophils 0.1 K/uL (0-0.5); Absolute Eosinophils 0.2 K/uL (0-0.5); Absolute Lymphocytes (CBC) 2.3 K/uL (0.7-4.9); Absolute Monocytes 0.8 K/uL (0.1-1.3); Absolute Neutrophil 2.8 K/uL (1.8-8.0); Basophils % 0.9 % (0-1.3); Eosinophils % 3.9 % (0-4.4); Hematocrit 41.2 % (39.6-49.0); Hemoglobin 13.6 g/dL (13.6-17.9); Lymphocytes % 37.2 % (15.3-44.8); MCHC 32.9 g/dL (32.0-36.0); MCV 88.2 fL (80-100); MPV 7.8 fL (7.6-11.3); Monocytes % 12.5 % (3.3-12.3); Neutrophils % 45.5 % (41.7-73.7); Platelets 328 thou/uL (152-406); RBC Red Blood Cell Count 4.67 M/uL (4.33-5.43); Red Cell Distribution Width 14.6 % (12.1-15.2)
[2024-07-18 12:05] LABS: Protime INR 0.98
--- NOTE | 2024-07-18 12:13 | RAD REPORT ---
EXAMINATION: CTA HEAD CLINICAL INDICATION: Male, 63 years old. DIZZINESS TECHNIQUE: Axial CT images were obtained through the head after intravenous contrast utilizing angiog raphic protocol with 3D post-processing (maximum intensity projection images, volume rendered images and/or shaded surface rendered images). One or more of the following dose reduction technique s were used: Automated exposure control, adjustment of the mA and/or kV according to patient size, and/or iterative reconstruction. Unless otherwise specified, incidental findings do not require dedic ated imaging follow-up. COMPARISON: No prior exam. FINDINGS: ICA: The petrous, cavernous, and supraclinoid segments of the bilateral internal carotid arteries are normal. The ophthalmic artery origins are visualized and normal. The posterior communicating arteries are patent. ALAN: Anterior cerebral arteries are normal bilaterally. The anterior communicating artery is patent. MCA: Middle cerebral arteries are normal bilaterally. EXPLOSIVE OPERATOR FUSE: origin of the bilateral posterior cerebral arteries. No occlusion. 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 The l eft vertebral artery is nondominant. Suspected small focal occlusion of the diminutive nondominant left vertebral artery which is chronic. 3D images confirm these findings. IMPRESSION: 1. Intact anterior circulation. 2. 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 The patient has origin of the bilateral posterior cerebral arteries with a diminutive vertebrobasilar system. The short segment left vertebral artery occlusion may be of little significance unless a cerebellar infar ct is suspected.
[2024-07-18 12:19] LABS: ALT/SGPT 57 U/L (16-61); AST/SGOT 32 U/L (15-37); Albumin 3.5 g/dL (3.4-5.0); Albumin/Globulin Ratio 0.9 (1.1-1.8); Alkaline Phosphatase 75 U/L (45-117); Anion Gap 5.5 mEq/L (5.0-15.0); BUN Blood Urea Nitrogen 14 mg/dL (7-18); Bicarbonate 27 mEq/L (21-32); Bilirubin Total 0.4 mg/dL (0.2-1.0); C-Reactive Protein 9.16 mg/L (<3.00); Glomerular Filtration Rate 87 ml/min (=/>90); Glucose Level 98 mg/dL (74-106); Lipase 38 U/L (13-75); Magnesium 2.1 mg/dL (1.6-2.4); NT PRO-BNP 31 pg/mL (<125); Potassium 3.5 mEq/L (3.5-5.1); Protein, Total 7.5 g/dL (6.4-8.2); Sodium Level 138 mEq/L (136-145); Troponin High Sensitivity 17.9 pg/mL (<58.9)
--- NOTE | 2024-07-18 12:21 | RAD REPORT ---
EXAMINATION: CTA NECK CLINICAL INDICATION: Male, 63 years old. PAIN TECHNIQUE: Axial CT images were obtained from the aortic arch to the skull base after intravenous con trast utilizing angiographic protocol with 3D post-processing (maximum intensity projection images, volume rendered images and/or shaded surface rendered images). One or more of the following dose redu ction techniques were used: Automated exposure control, adjustment of the mA and/or kV according to patient size, and/or iterative reconstruction. Unless otherwise specified, incidental findings do not require dedicated imaging follow-up. [id number]. NASCET criteria used. Mild 0-49% stenosis Moderate 50-69% stenosis Severe 70-99% stenosis COMPARISON: 05/21/2024 FINDINGS: AORTA: The imaged aortic arch is normal. CCA: The common carotid arteries are patent and normal in caliber. ICA/ECA: Bilateral internal and external carotid arteries are patent. There is no significant interna l carotid artery stenosis. Where applicable, degree of stenosis is measured using NASCET-like criteria. Mild calcified plaque present at the bifurcations. VERTEBRAL: Left dominant vertebral artery. Both vertebral arteries are patent. SOFT TISSUE: No significant neck soft tissue abnormalities. The visualized lung apices are clear. 3D images confirm these findings. IMPRESSION: No stenosis or dissection identified within the neck.
--- NOTE | 2024-07-18 12:23 | RAD REPORT ---
EXAMINATION: ONE VIEW CHEST XR CLINICAL INDICATION: Male, 63 years old.COUGH TECHNIQUE: 1 View, AP supine, X-ray of the chest was performed. [id number]. COMPARISON: No prior exam. FINDINGS: Lungs and pleura: Clear lungs. No effusion. Linear scarring at the right lung base. Heart and mediastinum: Normal heart size. Unremarkable mediastinal contours. Osseous structures: No acute abnormality. Tubes/lines: None Other: None. IMPRESSION: No acute intrathoracic abnormality.
[2024-07-18 12:25] LABS: Bilirubin Direct < 0.2 mg/dL (0-0.2); Bilirubin Indirect, Calculated 0.2 mg/dL (0.2-0.8)
--- NOTE | 2024-07-18 12:54 | EKG ---
Test Date: 2024-07-18 Test Time: 12:03:04 [employer] [place] Supervisor: DEVORA MEASUREMENT RESULTS: Intervals: Rate: 81 MT: 172 QRSD: 78 QT: 366 QTc: 425 [place]: P: 68 MT: 172 QRS: 49 T: 68 INTERPRETIVE STATEMENTS: Normal sinus rhythm Normal ECG Compared to ECG 06/05/2024 13:21:03 No significant changes Electronically Signed On 07-18-24 12:53:40 CDT by Paul Mansfield
[2024-07-18] MEDS ORDERED: TENECTEPLASE 50 MG/10 ML VIAL IV ONE (12:57)
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
--- NOTE | 2024-07-18 13:55 | RAD REPORT ---
EXAMINATION: MRI BRAIN WITHOUT CONTRAST CLINICAL INDICATION: Male, 63 years old. SLURRED SPEECH TECHNIQUE: Multiplanar multisequence MR images of the brain were obtained without intravenous contras t. Unless otherwise specified, incidental findings do not require dedicated imaging follow-up. [id number]. COMPARISON: 06/05/2024 FINDINGS: INTRACRANIAL: Diffusion-weighted images show no acute or early subacute infarction. No abnormal brain parenchymal signal. The ventricles are normal in size and morphology. No augmented susceptibility. There is no mass effect or midline shift. No abnormal extraaxial fluid collection. Minimal periventri cular T-2/FLAIR hyperintense signal. VASCULATURE: Normal signal voids in the larger intracranial arteries and dural venous sinuses. SINUSES: The paranasal sinuses and mastoid air cells are predominantly clear. BONE: The marrow signal pattern is within normal limits. IMPRESSION: No acute intracranial abnormality. Specifically, no evidence of acute infarct. Minimal chronic small vessel ischemic changes. The previously noted subacute small right caudate infarct is no longer apparent on DWI and not well visualized on T2 either.
[2024-07-18 14:24] LABS: Specific Gravity > 1.030 (1.005-1.030); Urine Bilirubin NEGATIVE (Negative); Urine Blood Negative (Negative); Urine Clarity Clear (Clear); Urine Color Colorless (Yellow); Urine Glucose NEGATIVE (Negative); Urine Ketones NEGATIVE (Negative); Urine Microscopic Reflex YN NO UMIC; Urine Nitrite NEGATIVE (Negative); Urine Protein NEGATIVE (Negative); Urine Urobilinogen Normal (Normal)
[2024-07-19 04:17] VITALS: TEMP 98.7; O2SAT 98
[2024-07-19 04:21] VITALS: BP 114/80
== END 2024-07-18 14:34 | disposition short-term general hospital (02) ==
LOC: ER 11:21
DX: I63.9 Cerebral infarction, unspecified (principal); I69.320 Aphasia following cerebral infarction; R29.702 NIHSS score 2; R42 Dizziness and giddiness; R53.1 Weakness; I10 Essential (primary) hypertension; F17.210 Nicotine dependence, cigarettes, uncomplicated; Z86.73 Personal history of transient ischemic attack (TIA), and cerebral infarction without residual deficits
CPT/HCPCS: 96365; 92977; 93005; 85025; 80048; 36415; 83735; 85610; 82565; 82947; 80076; 81003; 84484; 83690; 83880; 86140; 70450; 70496; 70498; 71045; 70551; 96375; 99285; Q9967; J8597; J3101; J2405; J7030